=== PATIENT | female | born 1945 | race Caucasian/White ===

== ENCOUNTER 2020-08-01 21:14 | Inpatient (IN) | payer MEDICARE, OTHER ==
[~2020-08-01] VITALS: Ht 162.6 cm; Wt 50.8 kg
[2020-08-01] MEDS ORDERED: MULT-594 PO (21:36)
[2020-08-01] MEDS ORDERED: CITA20TA19 PO (21:36)
[2020-08-01] MEDS ORDERED: DOCU-141 PO (21:36)
[2020-08-01] MEDS ORDERED: LORA-259 PO (21:36)
[2020-08-01] MEDS ORDERED: OLAN5TAB3 PO (21:36)
[2020-08-01 21:59] LABS: *BILIRUBIN,URIN NEGATIVE (NEGATIVE); *CLARITY,URINE CLEAR (CLEAR); *COLOR,URINE YELLOW (YELLOW); *KETONES,URINE NEGATIVE (NEGATIVE); LEUKOCYTE ESTERASE ,URINE TRACE (NEGATIVE); NITRITE, URINE NEGATIVE (NEGATIVE); PH,URINE 5.5 (5.0-8.0); UGLUCOSE NEGATIVE (NEGATIVE)
[2020-08-01 22:04] LABS: *BLOOD, URINE TRACE LYSED (NEGATIVE)
[2020-08-01 22:06] LABS: *AMPHETAMINE, URINE NEGATIVE (NEGATIVE); *CANNABINOID, URINE NEGATIVE (NEGATIVE); *COCCAINE, URINE NEGATIVE (NEGATIVE); *OPIATE, URINE NEGATIVE (NEGATIVE); *PHENCYCLIDINE SCREEN,URINE NEGATIVE (NEGATIVE)
[2020-08-01 22:13] LABS: BASOPHILS % (AUTO) 0.7 % (0.0-2.0); EOSINOPHILS # (AUTO) 0.2 K/uL (0.0-0.7); EOSINOPHILS % (AUTO) 3.6 % (0.0-7.0); HEMATOCRIT 36.9 % (31.2-41.9); HEMOGLOBIN 12.2 g/dL (10.9-14.3); LYMPHOCYTES # (AUTO) 1.5 K/uL (20.0-40.0); LYMPHOCYTES % (AUTO) 34.7 % (20.5-51.5); MEAN CORPUSCULAR HEMOGLOBIN 26.9 uug (24.7-32.8); MEAN CORPUSCULAR HGB CONC 33 g/dL (32.3-35.6); MEAN CORPUSCULAR VOLUME 81.5 fL (75.5-95.3); MONOCYTES # (AUTO) 0.3 K/uL (2.0-10.0); MONOCYTES % (AUTO) 6.4 % (0.0-11.0); NEUTROPHILS # (AUTO) 2.4 K/uL (1.8-8.9); NEUTROPHILS % (AUTO) 54.6 % (38.5-71.5); PLATELET COUNT (AUTO) 229 K/uL (179-408); RED BLOOD CELL COUNT(AUTO) 4.53 MIL/uL (3.63-4.92); WHITE BLOOD COUNT (AUTO) 4.3 K/uL (3.8-11.8)
[2020-08-01 22:22] LABS: CARBON DIOXIDE 25 mmol/L (21-32); CHLORIDE 100 mmol/L (98-107); CREATININE 0.6 mg/dL (0.6-1.3); GLUCOSE 105 mg/dL (74-106); POTASSIUM 3.9 mmol/L (3.5-5.1); UREA NITROGEN, BLOOD 22 mg/dL (7-18)
[2020-08-01 22:24] LABS: ETHANOL < 3 MG/DL (0-0)
[2020-08-01 22:28] LABS: ALANINE AMINOTRANSFERASE 22 U/L (14-59); ALKALINE PHOSPHATASE 48 U/L (50-136); ASPARTATE AMINOTRANSFERASE 18 U/L (15-37); BILIRUBIN,DIRECT 0.2 mg/dL (0.0-0.2); BILIRUBIN,TOTAL 0.4 mg/dL (0.2-1.0)
[2020-08-01 22:33] LABS: ACETAMINOPHEN < 2.0 ug/mL (10-30)
--- NOTE | 2020-08-01 22:44 | NUR ---
OSMAR LEA RN contacted for psych eval. States she will be here in an hour. Patient is medically cleared.
--- NOTE | 2020-08-01 23:27 | NUR ---
Lissette HAZEL has arrived to conduct PSYCH EVALUATION.
--- NOTE | 2020-08-01 23:40 | NUR ---
Notified that patient will be going to [facility] for GEROPSYCH
[2020-08-02 00:10] LABS: RBC,URINE 0-3 /HPF (0-3)
[2020-08-02 00:11] LABS: BACTERIA,URINE NONE SEEN /HPF (NONE SEEN); SQUAMOUS EPITHELIAL CELL,UR FEW /HPF (NONE SEEN); WBC,URINE 0-3 /HPF (0-3)
--- NOTE | 2020-08-02 00:20 | NUR ---
Received admission report from Bill from ER.
--- NOTE | 2020-08-02 00:21 | NUR ---
REPORT GIVEN TO U
--- NOTE | 2020-08-02 00:48 | NUR ---
Pt. admitted to [facility], under care of Dr. Menjivar. Patient is ambulatory, transported via wheelchair to [facility] with all her paperwork. Belongs List completed.
--- NOTE | 2020-08-02 00:50 | NUR ---
Patient arrived from ER via wheelchair accompanied by ILIR Smith. Awake and oriented x 3, able to make needs known. Calm and cooperative. VS and weight taken and recorded. Routine admission care done. Plan of care initiated.
--- NOTE | 2020-08-02 00:55 | NUR ---
Nany daly in ED - 08/02/20 at 0058 by BENITA Patient cooperative with medication administration. Rocephin, norco, and zofran given.
[2020-08-02] MEDS ORDERED: MAGNESIUM HYDROXIDE 30 ML LIQUID UDC PO PRN (01:30)
[2020-08-02] MEDS ORDERED: BLOOD SUGAR DIAGNOSTIC 1 EACH STRIP VI ONE (01:30)
[2020-08-02] MEDS ORDERED: ACETAMINOPHEN 325 MG TABLET PO PRN (01:30)
--- NOTE | 2020-08-02 06:37 | NUR ---
Patient slept 3.25 hours. No agitation, restlessness, suicidal ideation presented. Very cooperative and compliant to plan of care.
[2020-08-02 07:52] VITALS: BP 125/62
[2020-08-02] MEDS: DOCUSATE SODIUM 100 MG CAPSULE PO SCH ×2 (08:46→16:08)
[2020-08-02] MEDS: MULTIVITAMINS,THERAPEUTIC TABLET PO SCH (08:47)
--- NOTE | 2020-08-02 09:19 | NUR ---
PT RECEIVED SITTING IN DAY ROOM. PT ADMITS TO FEELING VERY DEPRESSED AND HOPELESS, AND WOULD LIKE TO SPEAK TO A PSYCHIATRIST RIGHT AWAY. COMPLIANT WITH MEDICATIONS AND CARE. ABLE TO MAKE ALL NEEDS KNOWN. THERAPEUTIC COMMUNICATION PROVIDED.
[2020-08-02] MEDS: CEphaleXIN 500 MG CAPSULE PO SCH ×2 (12:05→23:00)
[2020-08-02 16:15] VITALS: BP 99/49
[2020-08-02 20:43] VITALS: BP 115/58
[2020-08-02] MEDS: OLANZAPINE 2.5 MG TABLET PO SCH (21:28)
--- NOTE | 2020-08-03 06:19 | NUR ---
Received Pt in the day room watching TV, quiet, no interaction with peers observed. A+Ox3-4. Presents with low mood, flat affect, and circumstantial thought process. Pt reports being depressed over living in a half-way facility and is anxious regarding her discharge plans. Admits she felt suicidal prior to admission but now feels remorseful. Denies any current suicidal thoughts, plans, or ideations, and verbally contracts for safety. Pt encouraged to verbalize her feelings, and she stated she feels hopeless, helpless, and depressed but is improving since admitted. Pt encouraged to attend and participate in group therapy in order to learn and utilize positive coping skills. Pt offered prn medication, but she declined stating her scheduled medications "are good enough for now." Denies pain, VS stable, in no acute physical distress. Shower given. Slept 6.5 hours.
[2020-08-03 07:30] VITALS: BP 106/53
[2020-08-03] MEDS: OLANZAPINE 2.5 MG TABLET PO SCH ×2 (08:10→20:19)
[2020-08-03] MEDS: DOCUSATE SODIUM 100 MG CAPSULE PO SCH ×2 (08:10→16:44)
[2020-08-03] MEDS: MULTIVITAMINS,THERAPEUTIC TABLET PO SCH (08:10)
[2020-08-03] MEDS: VENLAFAXINE XR 37.5 MG CAP.SR.24H PO SCH (08:10)
[2020-08-03] MEDS: CEphaleXIN 500 MG CAPSULE PO SCH ×2 (12:19→23:28)
[2020-08-03 15:45] VITALS: BP 90/50
[2020-08-03 20:00] VITALS: BP 109/48
--- NOTE | 2020-08-04 06:40 | NUR ---
Slept 7.45 hours. No significant event reported. No suicidal ideation noted, calm and compliant to plan of care.
[2020-08-04 07:58] VITALS: BP 120/57
[2020-08-04] MEDS: DOCUSATE SODIUM 100 MG CAPSULE PO SCH ×2 (09:43→16:39)
[2020-08-04] MEDS: OLANZAPINE 2.5 MG TABLET PO SCH (09:43)
[2020-08-04] MEDS: MULTIVITAMINS,THERAPEUTIC TABLET PO SCH (09:43)
[2020-08-04] MEDS: VENLAFAXINE XR 37.5 MG CAP.SR.24H PO SCH (09:43)
--- NOTE | 2020-08-04 10:26 | NUR ---
HENRIQUE Initial Discharge Plan: Patient resides at [facility] [address] [place] [address] ([phone]). Patient will return to SNF upon discharge. Patient has no family or supportive contacts. SW will continue to work with patient, family, and MD to ensure a safe and proper discharge plan.
--- NOTE | 2020-08-04 10:28 | NUR ---
Firearms Report: Wire Mesh Gate Assembler completed and submitted a [employer] firearms report for 5150 danger to self and grave disability certification. A copy of report has been placed in patient chart.
[2020-08-04] MEDS: CEphaleXIN 500 MG CAPSULE PO SCH (12:20)
[2020-08-04 15:18] VITALS: BP 103/62
[2020-08-04 20:00] VITALS: BP 111/56
[2020-08-04] MEDS: OLANZAPINE 5 MG TABLET PO SCH (20:38)
--- NOTE | 2020-08-04 21:00 | NUR ---
RECEIVED PATIENT IN HER ROOM IN BED. SHE IS NOTED AWAKE A/O X 3. SHE APPEARS DEPRESSED, AND WITHDRAWN; HOWEVER, PATIENT DENIED SI/HI/VH/AH. SHE IS ABLE TO VERBALLY CFS. PT IS ENCOURAGE TO VERBALIZED FEELINGS. SHE WAS ABLE TO TO TAKE A SHOWER. SHE IS REASSURED FOR HIS SAFETY. V/S STABLE. CONTINUE COMPLIANT WITH MEDICATION REGIMENT. SAFETY AND FALL PRECAUTION IN PLACE. WILL CONTINUE TO MONITOR.
[2020-08-05] MEDS: CEphaleXIN 500 MG CAPSULE PO SCH ×2 (00:40→12:36)
--- NOTE | 2020-08-05 07:00 | NUR ---
PATIENT SLEPT FOR APPROX 4.30 HRS THROUGH THE NIGHT. SHE REFUSED BLOOD DRAWN. MULTIPLE REDIRECTIONS WERE GIVEN WITH THE RISK AND BENEFITS OD COMPLIANT WITH LABS, YET INEFFECTIVE. SHE CONTINUE REFUSING LABS. WILL CONTINUE TO MONITOR.
[2020-08-05 07:30] VITALS: BP 105/51
[2020-08-05] MEDS: DOCUSATE SODIUM 100 MG CAPSULE PO SCH ×2 (08:33→16:11)
[2020-08-05] MEDS: MULTIVITAMINS,THERAPEUTIC TABLET PO SCH (08:33)
[2020-08-05] MEDS ORDERED: OLANZAPINE 2.5 MG TABLET PO SCH (09:00)
--- NOTE | 2020-08-05 09:30 | NUR ---
IN ROOM ATE BREAKFAST IN BED REFUSED TO GO TO THE D/ROOM LOOKS SAD AND DEPRESSED COMPLIANT WITH MEDICATIONS AND CARE.DENIES FEELINGS OF SI MADE COMFORTABLE WILL CONTINUE TO PROVIDE SAFE AND THERAPEUTIC ENVIRONMENT AT ALL TIMES.
--- NOTE | 2020-08-05 12:15 | NUR ---
PATIENT WAS APPARENTLY UPSET WHEN DR ALBERT ATTEMPTED TO TALK TO HER VIA ZOOM VISIT SHE DID NOT WANT TO TALK AT THIS TIME.
[2020-08-05] MEDS: OLANZAPINE 2.5 MG TABLET PO SCH (12:41)
--- NOTE | 2020-08-05 14:30 | NUR ---
KIRBY STEIN HERE TO SEE PATIENT WITH NO NEW ORDERS SHE REMAINS ON ATB FOR UTI WITH NO ADVERSE OR ALLERGIC REACTIONS AT THIS TIME.
--- NOTE | 2020-08-05 17:00 | NUR ---
SEEN STANDING IN THE HALLWAY AGREED TO GO TO THE D/ROOM FOR A BRIEF TIME SHE IS COMPLIANT WITH MEDS AT THIS TIME WILL CONTINUE TO OBSERVE
[2020-08-05 20:00] VITALS: BP 112/56
[2020-08-05] MEDS: OLANZAPINE 5 MG TABLET PO SCH (20:09)
[2020-08-06] MEDS: CEphaleXIN 500 MG CAPSULE PO SCH ×2 (00:06→12:00)
[2020-08-06 07:30] VITALS: BP 118/51
[2020-08-06] MEDS: MULTIVITAMINS,THERAPEUTIC TABLET PO SCH (08:46)
[2020-08-06] MEDS: DOCUSATE SODIUM 100 MG CAPSULE PO SCH ×2 (08:46→17:00)
[2020-08-06] MEDS: OLANZAPINE 2.5 MG TABLET PO SCH ×2 (08:46→12:18)
[2020-08-06] MEDS: DIVALPROEX 250 MG TABLET.DR PO SCH ×2 (09:15→12:18)
[2020-08-06 09:36] LABS: BASOPHILS % (AUTO) 0.4 % (0.0-2.0); EOSINOPHILS # (AUTO) 0.2 K/uL (0.0-0.7); EOSINOPHILS % (AUTO) 3.7 % (0.0-7.0); HEMATOCRIT 37.2 % (31.2-41.9); HEMOGLOBIN 12.2 g/dL (10.9-14.3); LYMPHOCYTES # (AUTO) 2.1 K/uL (20.0-40.0); LYMPHOCYTES % (AUTO) 43.7 % (20.5-51.5); MEAN CORPUSCULAR HEMOGLOBIN 27.3 uug (24.7-32.8); MEAN CORPUSCULAR HGB CONC 33 g/dL (32.3-35.6); MEAN CORPUSCULAR VOLUME 83.1 fL (75.5-95.3); MONOCYTES # (AUTO) 0.3 K/uL (2.0-10.0); MONOCYTES % (AUTO) 5.4 % (0.0-11.0); NEUTROPHILS # (AUTO) 2.2 K/uL (1.8-8.9); NEUTROPHILS % (AUTO) 46.8 % (38.5-71.5); PLATELET COUNT (AUTO) 209 K/uL (179-408); RED BLOOD CELL COUNT(AUTO) 4.48 MIL/uL (3.63-4.92); WHITE BLOOD COUNT (AUTO) 4.8 K/uL (3.8-11.8)
[2020-08-06 10:15] LABS: BILIRUBIN,TOTAL 0.4 mg/dL (0.2-1.0); CREATININE 0.7 mg/dL (0.6-1.3); POTASSIUM 4.4 mmol/L (3.5-5.1); TOTAL PROTEIN, SERUM 6.8 g/dL (6.4-8.2)
--- NOTE | 2020-08-06 10:52 | NUR ---
PC Hearing: PC hearing was held today and it was upheld for danger to self and gravely disabled.
[2020-08-06] MEDS ORDERED: DIVALPROEX 250 MG TABLET.DR PO SCH (13:00)
--- NOTE | 2020-08-06 14:00 | NUR ---
Pt was given her PM medications. pt appeared taking it, but upon checking her mouth, pt was noted to not swallowed the medication and still having it in her mouth. When asked to swallow the medications, pt became upset and spit it out on the floor, yelling that nothing is wrong with her and she does not need medications.
[2020-08-06 16:04] VITALS: BP 114/59
[2020-08-06] MEDS: DIVALPROEX SPRINKLE 125 MG CAP.SPRINK PO SCH (17:00)
--- NOTE | 2020-08-06 18:00 | NUR ---
Pt's medication was offered, patient refusing, saying that she does not need to take it. Pt's medications were changed to Depakote sprinkles and Zyprexa Zydes to prevent cheecking. Teaching was provided. Patient continues to refuse.
[2020-08-06 19:54] VITALS: BP 101/60
[2020-08-06] MEDS ORDERED: OLANZAPINE ZYDIS 5 MG TAB.RAPDIS PO SCH (21:00)
--- NOTE | 2020-08-06 22:38 | NUR ---
Patient refused Zyprexa 5mg PO QHS. she was provided with education about the important of taking prescribed medication to improved sxs, yet refused. Dr Menjivar was notified. will continue to monitor.
--- NOTE | 2020-08-07 00:57 | NUR ---
Patient refused KEFLEX 500MG PO QHS. she was provided with education about the important of taking prescribed medication to improved sxs, yet refused. will continue to monitor.
--- NOTE | 2020-08-07 07:14 | NUR ---
patient slept for approx. 6.00hrs through the night. she continue isolative and withdrawn, will continue to monitor
[2020-08-07 07:30] VITALS: BP 104/46
[2020-08-07] MEDS ORDERED: OLANZAPINE ZYDIS 5 MG TAB.RAPDIS PO SCH (08:00)
[2020-08-07] MEDS: DOCUSATE SODIUM 100 MG CAPSULE PO SCH ×2 (09:00→17:00)
[2020-08-07] MEDS: DIVALPROEX SPRINKLE 125 MG CAP.SPRINK PO SCH (09:00)
[2020-08-07] MEDS: MULTIVITAMINS,THERAPEUTIC TABLET PO SCH (09:00)
[2020-08-07] MEDS: HALOPERIDOL 5 MG TABLET PO SCH ×2 (10:15→17:00)
[2020-08-07] MEDS: CEphaleXIN 500 MG CAPSULE PO SCH ×3 (12:00→23:59)
--- NOTE | 2020-08-07 20:37 | NUR ---
RECEIVED PATIENT IN HER ROOM IN BED. A/O X 2. SHE IS EASILY IRRITABLE UPON APPROACHED. PATIENT IS LABILE.REFUSED TO ENGAGE, REUSED VITAL SIGNS, AND MEDICATION. PATIENT REMAINS. ISOLATED AND WITHDRAWN. UNCOOPERATIVE WITH PLAN OF CARE. PATIENT IS REASSURED FOR HER SAFETY. SAFE ENVIRONMENT PROVIDED, FREQUENT ROUNDING. BED IN LOWEST POSITION AND BED LOCKED.
--- NOTE | 2020-08-08 08:05 | NUR ---
pt received lying in bed resting comfortably. chief writer went to go introduce self and inquired why pt has been refusing medications. Pt just answered "no" and turned head away and ignored all further questions and communication. Continues to refuse all PO medications and v/s.
[2020-08-08] MEDS ORDERED: LORAZEPAM 2 MG/1 ML VIAL IM ONE (08:30)
[2020-08-08] MEDS ORDERED: BENZTROPINE MESYLATE 2 MG/2 ML AMPUL IM ONE (08:30)
[2020-08-08] MEDS ORDERED: HALOPERIDOL LACTATE 5 MG/1 ML VIAL IM ONE (08:30)
--- NOTE | 2020-08-08 08:40 | NUR ---
PT NOTED HIGHLY AGITATED, BELLIGERENT, SCREAMING/YELLING. APPROACHED NURSES STATION AND THREW BREAKFAST TRAY FULL OF FOOD AT NURSES STATION COMPUTER, THEREBY MAKING THE KEYBOARD NON FUNCTIONAL. REQUIRES MULTIPLE REDIRECTION BACK TO ROOM. CALLED DR. ALBERT, RECEIVED ORDER FOR HALDOL 5MG IM, ATIVAN 1MG IM, COGENTIN 1MG IM X1 NOW. NOTED AND CARRIED OUT. ALLOWED IM ADMINISTRATION WITHOUT RESISTANCE. CONTINUES TO REFUSE PO MEDICATIONS.
[2020-08-08] MEDS: DOCUSATE SODIUM 100 MG CAPSULE PO SCH ×2 (09:00→16:37)
[2020-08-08] MEDS: HALOPERIDOL 5 MG TABLET PO SCH ×2 (09:00→16:37)
[2020-08-08] MEDS: MULTIVITAMINS,THERAPEUTIC TABLET PO SCH (09:00)
--- NOTE | 2020-08-08 09:24 | NUR ---
pt lying in bed at this time. Dr. Menjivar saw pt via Telehealth, and pt immediately got up from bed, stating "you're stupid...you're homeless...you're nothing you venus avila." Redirection provided.
--- NOTE | 2020-08-08 10:55 | NUR ---
SENT RIESE PETITION TO SUPERIOR COURT AT THIS TIME. SPOKE TO BREANNE FROM THE COURT CONFIRMING THEY HAVE RECEIVED IT. STATED BECAUSE TUESDAY IS A HOLIDAY, THEY WILL NOT BE ABLE TO PROCESS IT UNTIL TUESDAY FOR THE HEARING TO BE MADE ON TUESDAY. STATES TO FAX RIESE PETITION ON TUESDAY, BECAUSE IT SHOULD BE FILED WITHIN 2 BUSINESS DAYS, AND PATIENTS RIGHTS MAY ASK TO REFILE PETITION ANYWAY. SPOKE TO DR ALBERT AND AGREED TO FILE RIESE ON TUESDAY. PT CONTINUES TO REFUSE ALL PO MEDICATIONS.
[2020-08-08] MEDS: CEphaleXIN 500 MG CAPSULE PO SCH (12:00)
[2020-08-09] MEDS: CEphaleXIN 500 MG CAPSULE PO SCH
--- NOTE | 2020-08-09 07:30 | NUR ---
Received patient Alert, disoriented x4, patient having command auditory hallucination, paranoid and delusional about her meal, patient threw her breakfast tray in the nursing station, patient non compliant with medication even after explaining to her the benefits of medication, patient monitored q15 minutes for safety
[2020-08-09] MEDS ORDERED: LORAZEPAM 2 MG/1 ML VIAL IM ONE (08:30)
[2020-08-09] MEDS ORDERED: HALOPERIDOL LACTATE 5 MG/1 ML VIAL IM ONE (08:30)
--- NOTE | 2020-08-09 08:30 | NUR ---
Emergency IM medication patient was unprovoke , went to nursing station with her breakfast tray and threw the food to the computer, patient went back to her room, having command hallucination and paranoid delusion, called and spoke with Dr. Dacosta ,with orders made and carried out, patient tolerated the medication, monitored [id number] , VS WNL no sign of any distress
[2020-08-09] MEDS: MULTIVITAMINS,THERAPEUTIC TABLET PO SCH (09:00)
[2020-08-09] MEDS: DOCUSATE SODIUM 100 MG CAPSULE PO SCH ×2 (09:00→17:00)
[2020-08-09] MEDS ORDERED: BENZTROPINE MESYLATE 2 MG/2 ML AMPUL IM SCH (09:00)
[2020-08-09] MEDS: HALOPERIDOL 5 MG TABLET PO SCH ×2 (09:00→17:00)
--- NOTE | 2020-08-09 16:22 | NUR ---
patient remain quiet in dining room, no sign of distress at this time, refusing her oral medication, aware
--- NOTE | 2020-08-09 19:37 | NUR ---
patient remain calm, no sign of distress , monitored q15 , non compliant with medication
[2020-08-10] MEDS: MULTIVITAMINS,THERAPEUTIC TABLET PO SCH (09:00)
[2020-08-10] MEDS: DOCUSATE SODIUM 100 MG CAPSULE PO SCH ×2 (09:00→17:00)
[2020-08-10] MEDS: HALOPERIDOL 5 MG TABLET PO SCH ×2 (09:00→17:00)
[2020-08-11] MEDS: DOCUSATE SODIUM 100 MG CAPSULE PO SCH ×2 (09:00→17:00)
[2020-08-11] MEDS: HALOPERIDOL 5 MG TABLET PO SCH ×2 (09:00→17:00)
[2020-08-11] MEDS: MULTIVITAMINS,THERAPEUTIC TABLET PO SCH (09:00)
--- NOTE | 2020-08-11 12:43 | NUR ---
Joaquín erickson faxed to court, today is holiday for court will follow up in Fadi boyd reading material given to patient.
--- NOTE | 2020-08-12 01:24 | NUR ---
Patient refusing VS and all medications at this time. Continuing to educate and encourage patient on importance of medication compliance. No acute behavior escalation noted so far this shift. Will monitor for safety and make frequent rounds.
--- NOTE | 2020-08-12 06:00 | NUR ---
Patient slept 8.30 hours. No issues during the night. Continuing to monitor for safety and behavior escalation. Refused to be weighted. No SI at this time.
[2020-08-12] MEDS: DOCUSATE SODIUM 100 MG CAPSULE PO SCH ×2 (08:17→16:23)
[2020-08-12] MEDS: HALOPERIDOL 5 MG TABLET PO SCH ×2 (08:18→16:23)
[2020-08-12] MEDS: MULTIVITAMINS,THERAPEUTIC TABLET PO SCH (08:18)
--- NOTE | 2020-08-12 10:36 | NUR ---
HENRIQUE Court Contact: HENRIQUE called the court ([phone]) and confirmed they received the Riese petition and will be scheduling the Riese sometime tomorrow. They stated they will know later this afternoon.
--- NOTE | 2020-08-13 06:16 | NUR ---
GPS: Remain uncooperative with meds and care. refused v/s last night. refused shower this morning. resting in bed comfortably/ slept 7.15 hrs through the night. continue plan of care.
[2020-08-13] MEDS: DOCUSATE SODIUM 100 MG CAPSULE PO SCH ×2 (08:32→16:11)
[2020-08-13] MEDS: MULTIVITAMINS,THERAPEUTIC TABLET PO SCH (08:32)
[2020-08-13] MEDS: HALOPERIDOL 5 MG TABLET PO SCH ×3 (08:32→20:23)
[2020-08-13] MEDS ORDERED: BENZTROPINE MESYLATE 0.5 MG TABLET PO SCH (10:45)
[2020-08-13] MEDS ORDERED: HALOPERIDOL LACTATE 5 MG/1 ML VIAL IM PRN ×2 (10:45→11:42)
[2020-08-13] MEDS ORDERED: HALOPERIDOL 5 MG TABLET PO SCH (10:45)
[2020-08-13] MEDS: BENZTROPINE MESYLATE 0.5 MG TABLET PO SCH ×3 (11:45→20:23)
[2020-08-13] MEDS: ENSURE ENLIVE (VAN) 240 ML LIQUID PO SCH (16:12)
--- NOTE | 2020-08-13 21:11 | NUR ---
PATIENT RECEIVED IN ACTIVITIES ROOM WATCHING T.V. AND INTERACTING WITH PEERS. PATIENT DENIES SI.PATIENT COMPLAINT WITH MEDICATION.NO AGGRESSIVE OR COMBATIVE BEHAVIOR NOTED. SAFE ENVIRONMENT, FREQUENT ROUNDING. BED IN LOWEST POSITION AND BED LOCKED.
[2020-08-14] MEDS: DOCUSATE SODIUM 100 MG CAPSULE PO SCH ×2 (08:53→16:41)
[2020-08-14] MEDS: MULTIVITAMINS,THERAPEUTIC TABLET PO SCH (08:53)
[2020-08-14] MEDS: HALOPERIDOL 5 MG TABLET PO SCH ×2 (08:53→20:33)
[2020-08-14] MEDS: BENZTROPINE MESYLATE 0.5 MG TABLET PO SCH ×3 (08:53→20:33)
[2020-08-14] MEDS: ENSURE ENLIVE (VAN) 240 ML LIQUID PO SCH ×2 (08:54→17:00)
[2020-08-14] MEDS: DIVALPROEX 250 MG TABLET.DR PO SCH ×2 (10:52→16:40)
--- NOTE | 2020-08-14 11:56 | NUR ---
Gps/Child Care Team Lead- Compliant with her routine am medications, flat angry affect, irritable
--- NOTE | 2020-08-14 14:49 | NUR ---
Gps/Vineyard Worker- Patient kept refusing EKG, since it was necessary, pt. was put on the derrell-chair , R.T. was able to do EKG while in her derrell-chair. Patient very rude , sarcastic, calling staff names , making racial remarks .
--- NOTE | 2020-08-14 18:00 | NUR ---
Gps/Ceo & Founder- Stayed in the TV room this pm, quiet, not interacting with her peers, gets irritable and angry when being approached by staff., does not want to be bothered
[2020-08-15] MEDS: HALOPERIDOL 5 MG TABLET PO SCH ×2 (08:33→20:08)
[2020-08-15] MEDS: DOCUSATE SODIUM 100 MG CAPSULE PO SCH ×2 (08:33→16:27)
[2020-08-15] MEDS: MULTIVITAMINS,THERAPEUTIC TABLET PO SCH (08:33)
[2020-08-15] MEDS: DIVALPROEX 250 MG TABLET.DR PO SCH (08:33)
[2020-08-15] MEDS: BENZTROPINE MESYLATE 0.5 MG TABLET PO SCH ×3 (08:34→20:09)
[2020-08-15] MEDS: ENSURE ENLIVE (VAN) 240 ML LIQUID PO SCH ×2 (08:34→16:57)
[2020-08-15] MEDS: DIVALPROEX 125 MG TABLET.DR PO SCH (16:27)
--- NOTE | 2020-08-16 06:31 | NUR ---
GPS: Remain cooperative with meds and care. Refused v/s last night. Refused shower this morning. resting in bed comfortably/ slept 8.15 hrs through the night. continue plan of care.
[2020-08-16] MEDS: ENSURE ENLIVE (VAN) 240 ML LIQUID PO SCH ×2 (08:00→16:12)
[2020-08-16] MEDS: DOCUSATE SODIUM 100 MG CAPSULE PO SCH ×2 (08:40→16:11)
[2020-08-16] MEDS: HALOPERIDOL 5 MG TABLET PO SCH ×2 (08:40→20:23)
[2020-08-16] MEDS: DIVALPROEX 125 MG TABLET.DR PO SCH ×2 (08:40→16:11)
[2020-08-16] MEDS: MULTIVITAMINS,THERAPEUTIC TABLET PO SCH (08:41)
[2020-08-16] MEDS: BENZTROPINE MESYLATE 0.5 MG TABLET PO SCH ×3 (08:41→20:23)
--- NOTE | 2020-08-16 16:12 | NUR ---
GPS: Nursing Notes: Refusing Medications: Patient is awake and responding to her name, gets easily irritable when redirected, poor anger management, resistant with nursing care, loud and pressured speech, patient cheeking her medications, when asked to open her mouth to check, patient became violent and verbal abusive, "YOU ARE A FUCKEN IDIOT..", "STUPID...DUMB FUCKER..", spitted all her pills on the floor, stated, "FUCK YOU..", redirected to her room, unable to formulate a viable plan for self care, continue with treatment plan.
[2020-08-16] MEDS ORDERED: ENSURE WITH FIBER 237 ML LIQUID (CHOCOLATE) PO SCH (17:00)
--- NOTE | 2020-08-17 05:56 | NUR ---
GPS: Remain cooperative with meds and care. Refused v/s last night. took shower last night. resting in bed comfortably/ slept 7.30 hrs through the night. continue plan of care.
[2020-08-17] MEDS: ENSURE ENLIVE (VAN) 240 ML LIQUID PO SCH ×2 (08:00→16:37)
--- NOTE | 2020-08-17 08:25 | NUR ---
GPS: Nursing Notes: Severe Agitation: Patient is awake and responding to her name, loud and pressured speech, verbal abusive toward staff, "STUPID BITCH..', "DUMB FUCK..', violent outburst without provocation, threw her hot meal toward staff sitting near the computer, hitting the monitor and all over the keyboard, shouting to staff, "I AM GOING TO DO THIS ALL DAY...STUPID BITCH..', resistant with nursing care, restless behavior, threatening staff, "I AM GOING TO FUCKEN GET YOU.. FUCKER.. YOU BUMB FUCK..", setting limits, but continue to restless with unpredictable behavior, refusing her PO medications, redirected to her room and Dr. Argueta covering for Dr. Youngblood was paged, continue to monitor patient for safety, continue with treatment plan.
[2020-08-17] MEDS ORDERED: LORAZEPAM 2 MG/1 ML VIAL IM ONE (08:30)
[2020-08-17] MEDS ORDERED: BENZTROPINE MESYLATE 2 MG/2 ML AMPUL IM ONE (08:30)
[2020-08-17] MEDS ORDERED: HALOPERIDOL LACTATE 5 MG/1 ML VIAL IM ONE (08:30)
[2020-08-17] MEDS ORDERED: OLANZAPINE 10 MG VIAL IM ONE (09:00)
[2020-08-17] MEDS: MULTIVITAMINS,THERAPEUTIC TABLET PO SCH (09:00)
[2020-08-17] MEDS: DIVALPROEX 125 MG TABLET.DR PO SCH ×2 (09:00→16:37)
[2020-08-17] MEDS: HALOPERIDOL 5 MG TABLET PO SCH ×2 (09:00→20:04)
[2020-08-17] MEDS: DOCUSATE SODIUM 100 MG CAPSULE PO SCH ×2 (09:00→16:37)
[2020-08-17] MEDS ORDERED: diphenhydrAMINE 50 MG/1 ML VIAL IM ONE (09:00)
[2020-08-17] MEDS: BENZTROPINE MESYLATE 0.5 MG TABLET PO SCH ×3 (09:00→20:04)
--- NOTE | 2020-08-17 09:08 | NUR ---
GPS: Nursing Notes: Chemical Restraint: Patient with severe agitation, violent outburst without provocation, threw her hot meal toward staff sitting near the computer, hitting the monitor and all over the monitor, shouting at staff "I AM GOING TO FUCKEN GET YOU... STUPID BITCH..", "I AM GOING TO DO THIS ALL DAY.. DUMB FUCK..", setting limits, but overly disruptive by shouting, unable to be redirected, restless behavior, verbal abusive and threatening staff, Dr. Argueta call back and ordered: Zyprexa 5mg IM, Ativan 1mg IM, and Benadryl 25mg IM STAT, medication IMs given at this time, R=18, continue to monitor for safety, continue with treatment plan.
--- NOTE | 2020-08-17 09:38 | NUR ---
GPS: Nursing Notes: Reassessment of Chemical Restraint: Patient is calmed, responding to her name, isolative in her room, laying down on her bed, R=18, medication IMs STAT were effective, continue to monitor for safety, continue with treatment plan.
[2020-08-17] MEDS ORDERED: OLANZAPINE 10 MG VIAL IM PRN (15:45)
--- NOTE | 2020-08-17 16:39 | NUR ---
GPS: Nursing Notes: Non-Compliance with Medications: Patient awake and responding to her name, refusing her medications, threw the pills on the floor and cover her head with her blanket, verbal abusive, "Stupid fuck..", explained the pros and cons of her psych. medication, but continue to refuse her medication, evasive when questioned by staff, unable to formulate a viable plan for self care, continue with treatment plan.
--- NOTE | 2020-08-18 05:56 | NUR ---
Received patient last night in bed but awake. Not willing to engage in any conversation but did take her PO medications without difficulty. Patient slept 9.00 hours last and remained calm throughout the shift. Continuing to monitor for labile behavior, medication compliance and safety.No acute issues at this time.
[2020-08-18] MEDS: ENSURE ENLIVE (VAN) 240 ML LIQUID PO SCH ×2 (08:00→17:00)
[2020-08-18] MEDS: BENZTROPINE MESYLATE 0.5 MG TABLET PO SCH ×3 (08:33→20:13)
[2020-08-18] MEDS: DOCUSATE SODIUM 100 MG CAPSULE PO SCH ×2 (08:34→17:00)
[2020-08-18] MEDS: MULTIVITAMINS,THERAPEUTIC TABLET PO SCH (08:34)
[2020-08-18] MEDS: DIVALPROEX 125 MG TABLET.DR PO SCH (08:34)
[2020-08-18] MEDS: HALOPERIDOL 5 MG TABLET PO SCH ×2 (08:34→20:13)
[2020-08-18 09:25] LABS: BASOPHILS % (AUTO) 0.3 % (0.0-2.0); EOSINOPHILS # (AUTO) 0.1 K/uL (0.0-0.7); EOSINOPHILS % (AUTO) 2.9 % (0.0-7.0); HEMATOCRIT 35.6 % (31.2-41.9); LYMPHOCYTES # (AUTO) 1.4 K/uL (20.0-40.0); LYMPHOCYTES % (AUTO) 36.9 % (20.5-51.5); MEAN CORPUSCULAR HEMOGLOBIN 27.8 uug (24.7-32.8); MEAN CORPUSCULAR HGB CONC 34 g/dL (32.3-35.6); MEAN CORPUSCULAR VOLUME 82.1 fL (75.5-95.3); MONOCYTES # (AUTO) 0.2 K/uL (2.0-10.0); MONOCYTES % (AUTO) 5.4 % (0.0-11.0); NEUTROPHILS # (AUTO) 2.1 K/uL (1.8-8.9); NEUTROPHILS % (AUTO) 54.5 % (38.5-71.5); PLATELET COUNT (AUTO) 186 K/uL (179-408); RED BLOOD CELL COUNT(AUTO) 4.34 MIL/uL (3.63-4.92); WHITE BLOOD COUNT (AUTO) 3.9 K/uL (3.8-11.8)
[2020-08-18 09:37] LABS: ALANINE AMINOTRANSFERASE 12 U/L (14-59); ALKALINE PHOSPHATASE 49 U/L (50-136); ASPARTATE AMINOTRANSFERASE 11 U/L (15-37); BILIRUBIN,TOTAL 0.3 mg/dL (0.2-1.0); CARBON DIOXIDE 29 mmol/L (21-32); CHLORIDE 103 mmol/L (98-107); CREATININE 0.8 mg/dL (0.6-1.3); GLUCOSE 119 mg/dL (74-106); POTASSIUM 3.9 mmol/L (3.5-5.1); TOTAL PROTEIN, SERUM 6.5 g/dL (6.4-8.2); UREA NITROGEN, BLOOD 18 mg/dL (7-18)
--- NOTE | 2020-08-18 09:56 | NUR ---
GPS: Nursing Notes: Non-compliance with Medication: Patient is awake and responding to her name, isolative in her room, cheeking her medication this am, when asked to open her mouth to see if she swallow the medication, patient looked at staff angrily and spitted the pills on her food tray, patient went back to bed and cover herself with her blanket, refusing to answer any questions, aphasic at this time, unable to formulate a viable plan for self care, refusing to participate in therapeutic groups, continue to monitor for safety, continue with treatment plan.
[2020-08-18 10:08] LABS: VALPROIC ACID < 3 ug/mL (50-100)
[2020-08-18] MEDS ORDERED: HALOPERIDOL DECANOATE 50 MG/1 ML AMPUL IM ONE (11:00)
[2020-08-18] MEDS: DIVALPROEX SPRINKLE 125 MG CAP.SPRINK PO SCH ×2 (13:00→17:00)
--- NOTE | 2020-08-18 13:00 | NUR ---
Joaquín petition faxed to court.
--- NOTE | 2020-08-19 06:15 | NUR ---
Received patient in bed, awake , alert and oriented. Refusing to have VS taken but did have a shower. This patient took PO medications without any difficulty. Hours of sleep were 6.30. Patient was up one time during the night just to check the time. No behavior escalation noted. Continuing to monitor for safety and for labile mood. Discharge Specialist unable to engage patient in any meaningful conversation. Patient gets irritated when asked questions.
[2020-08-19] MEDS: ENSURE ENLIVE (VAN) 240 ML LIQUID PO SCH ×2 (08:00→16:22)
[2020-08-19] MEDS: BENZTROPINE MESYLATE 0.5 MG TABLET PO SCH ×4 (08:33→21:00)
[2020-08-19] MEDS: HALOPERIDOL 5 MG TABLET PO SCH ×3 (08:33→21:00)
[2020-08-19] MEDS: MULTIVITAMINS,THERAPEUTIC TABLET PO SCH (08:34)
[2020-08-19] MEDS: DOCUSATE SODIUM 100 MG CAPSULE PO SCH ×2 (08:34→16:22)
[2020-08-19] MEDS: DIVALPROEX SPRINKLE 125 MG CAP.SPRINK PO SCH (08:34)
[2020-08-19] MEDS: DIVALPROEX 500 MG TABLET.DR PO SCH ×4 (11:45→21:00)
--- NOTE | 2020-08-20 06:49 | NUR ---
patient slept for approx. 7.00 hrs through the night. She refused all her QHS. will continue to monitor.
--- NOTE | 2020-08-20 07:30 | NUR ---
received patient , aox1, patient responding to internal stimuli, patient having auditory hallucination, paranoid delusional, patient refused all her morning medication, saying that medication making her sick, patient stayed in her room, on monitoring for safety
[2020-08-20] MEDS: ENSURE ENLIVE (VAN) 240 ML LIQUID PO SCH ×2 (08:00→17:00)
[2020-08-20] MEDS: BENZTROPINE MESYLATE 0.5 MG TABLET PO SCH ×3 (09:00→21:00)
[2020-08-20] MEDS: DOCUSATE SODIUM 100 MG CAPSULE PO SCH ×2 (09:00→17:00)
[2020-08-20] MEDS: HALOPERIDOL 5 MG TABLET PO SCH ×2 (09:00→21:00)
[2020-08-20] MEDS: DIVALPROEX 500 MG TABLET.DR PO SCH ×2 (09:00→21:00)
[2020-08-20] MEDS: MULTIVITAMINS,THERAPEUTIC TABLET PO SCH (09:00)
--- NOTE | 2020-08-20 19:17 | NUR ---
PATIENT BEEN CALM, NO SIGN OF DISTRESS, CONTINUES REFUSING MEDICATION
--- NOTE | 2020-08-20 21:01 | NUR ---
RECEIVED PATIENT IN HER ROOM IN BED AWAKE. SHE IS A/O X 2. SHE IS ISOLATIVE. WITHDRAWN. PATIENT NON COMPLAINT WITH MEDICATIONS WAS INFORMED OF THE IMPORTANCE OF MEDICATION COMPLIANT TO REDUCE HER SYMPTOMS, YET REFUSED. SHE STATED," THEY ARE MAKING ME SICK" IS REASSURED FOR HER SAFETY.SAFETY AND FALL PRECAUTION IN PLACE. SAFE ENVIRONMENT PROVIDED AND FREQUENT ROUNDING. BED IN LOWEST POSITION AND BED LOCKED. NO AGGRESSIVE OR COMBATIVE BEHAVIOR.
[2020-08-21] MEDS: ENSURE ENLIVE (VAN) 240 ML LIQUID PO SCH ×2 (08:00→16:46)
[2020-08-21] MEDS: MULTIVITAMINS,THERAPEUTIC TABLET PO SCH (09:00)
[2020-08-21] MEDS: DOCUSATE SODIUM 100 MG CAPSULE PO SCH ×2 (09:00→16:45)
[2020-08-21] MEDS: HALOPERIDOL 5 MG TABLET PO SCH ×2 (09:00→20:24)
[2020-08-21] MEDS: BENZTROPINE MESYLATE 0.5 MG TABLET PO SCH ×3 (09:00→20:24)
[2020-08-21] MEDS: DIVALPROEX 500 MG TABLET.DR PO SCH ×2 (09:00→20:24)
--- NOTE | 2020-08-21 14:15 | NUR ---
PC and Reise Hearing: SW placed the 30 Day Hold Certification and the Reise certification in the pts chart.
[2020-08-21] MEDS ORDERED: HALOPERIDOL DECANOATE 50 MG/1 ML AMPUL IM ONE (14:30)
[2020-08-21] MEDS ORDERED: OLANZAPINE 10 MG VIAL IM ONE (15:45)
--- NOTE | 2020-08-21 18:02 | NUR ---
Received patient AOx1, calm in her room, continuously refused her oral medications, patient was put on RIESE and Dr. Menjivar ordered Haldol Dec and gave at 3pm , on monitoring q15 minutes , patient no distress at this time
[2020-08-21] MEDS: OLANZAPINE 10 MG VIAL IM PRN (20:27)
--- NOTE | 2020-08-22 06:25 | NUR ---
gps: Remain calm and cooperative with care. patient slept for approx. 9.15 hrs through the night. patient refused all her QHS medications. haldol im was given as ordered. will continue to monitor.
[2020-08-22] MEDS: ENSURE ENLIVE (VAN) 240 ML LIQUID PO SCH ×2 (08:00→17:00)
[2020-08-22] MEDS: OLANZAPINE 10 MG VIAL IM PRN ×2 (08:40→21:02)
[2020-08-22] MEDS: HALOPERIDOL 5 MG TABLET PO SCH ×2 (09:00→20:46)
[2020-08-22] MEDS: BENZTROPINE MESYLATE 0.5 MG TABLET PO SCH ×3 (09:00→20:45)
[2020-08-22] MEDS: DIVALPROEX 500 MG TABLET.DR PO SCH ×2 (09:00→20:45)
[2020-08-22] MEDS: MULTIVITAMINS,THERAPEUTIC TABLET PO SCH (09:00)
[2020-08-22] MEDS: DOCUSATE SODIUM 100 MG CAPSULE PO SCH ×2 (09:00→17:00)
--- NOTE | 2020-08-22 11:07 | NUR ---
Individual Intervention: SW met with the pt at bedside and informed her that she is being discharged today. Pt stated that she accepts placement and that she is ready to go. SW informed her that she would have to get her vitals taken and the pt stated that she will only do that when the ambulance arrives because it hurts her.
--- NOTE | 2020-08-22 11:08 | NUR ---
SNF Contact: HENRIQUE faxed updated notes to [facility] with attn to Harish to the fax number: [phone].
--- NOTE | 2020-08-22 22:47 | NUR ---
Watching TV upon rounds. AAOx2-3 Refused all due meds plus vital signs. Needs attended. Patient calm and cooperative. No signs of behavioral issues noted. No agitation or restlessness noted. Will monitor patient. Zyprexa 7.5 given IM. Kept comfortable.
--- NOTE | 2020-08-23 07:02 | NUR ---
Slept well throughout the night. No acute distress noted. Kept comfortable. Will monitor patient. All needs attended and met.
[2020-08-23] MEDS: ENSURE ENLIVE (VAN) 240 ML LIQUID PO SCH ×2 (08:00→17:23)
[2020-08-23] MEDS: HALOPERIDOL 5 MG TABLET PO SCH ×2 (09:00→20:51)
[2020-08-23] MEDS: DIVALPROEX 500 MG TABLET.DR PO SCH ×2 (09:00→20:51)
[2020-08-23] MEDS: MULTIVITAMINS,THERAPEUTIC TABLET PO SCH (09:00)
[2020-08-23] MEDS: DOCUSATE SODIUM 100 MG CAPSULE PO SCH ×2 (09:00→17:00)
[2020-08-23] MEDS: BENZTROPINE MESYLATE 0.5 MG TABLET PO SCH ×3 (09:00→20:51)
[2020-08-23] MEDS: OLANZAPINE 10 MG VIAL IM PRN ×2 (09:42→20:52)
--- NOTE | 2020-08-23 18:00 | NUR ---
patient remain calm and cooperative with care, stays in bed for the whole day with moment of wakefulness, refused all medication, Patient calm and cooperative. No signs of behavioral issues noted. No agitation or restlessness noted. Will monitor patient. Zyprexa 7.5 given IM. Kept comfortable.
--- NOTE | 2020-08-23 23:07 | NUR ---
Calm and cooperative. Refused vital signs, blood pressure and refused all meds. Patient non-compliant with meds and care. Able to give IIM Zyprexa . No acute distress noted. VSS.
--- NOTE | 2020-08-24 06:39 | NUR ---
Slept @ 8hrs and 45 minutes. No distress noted. Uneventful night. Quiet and calm. No behavioral issues noted. Patient monitored q 15 minutes for safety.
[2020-08-24] MEDS: ENSURE ENLIVE (VAN) 240 ML LIQUID PO SCH ×2 (08:00→16:58)
[2020-08-24] MEDS: MULTIVITAMINS,THERAPEUTIC TABLET PO SCH (08:55)
[2020-08-24] MEDS: DIVALPROEX 500 MG TABLET.DR PO SCH ×3 (08:55→21:00)
[2020-08-24] MEDS: BENZTROPINE MESYLATE 0.5 MG TABLET PO SCH ×4 (08:55→21:00)
[2020-08-24] MEDS: DOCUSATE SODIUM 100 MG CAPSULE PO SCH ×2 (08:55→16:57)
[2020-08-24] MEDS: HALOPERIDOL 5 MG TABLET PO SCH ×3 (08:55→21:00)
[2020-08-24] MEDS: OLANZAPINE 10 MG VIAL IM PRN ×2 (08:56→21:31)
--- NOTE | 2020-08-24 16:00 | NUR ---
Gps/Consulting Practice Director- Refusing vital signs, reviewed with patient importance of checking,. gets argumentative, irritable ., refused to listen , walking away
--- NOTE | 2020-08-25 06:52 | NUR ---
GPS: Remain calm and cooperative with care. patient slept for approx. 7 hrs through the night. will continue to monitor.
--- NOTE | 2020-08-25 08:15 | NUR ---
SW Discharge Note: Patient will be discharged to usp facility, [facility], [place] [address] [place] [address] ([phone]) via Ambulance transportation at 4PM. Rest Room Attendant spoke with Harish, Cytology Teacher at [facility] ([phone]), who confirmed that patient will be accepted at their facility today. Patient has no supportive contacts to be notified. Upon discharge, patient appears to be alert and oriented x3 (place, self and situation). Patient is not able to plan for self-care at this time but is willing to accept care provided for her at the facility. Patient denies suicidal or homicidal ideation as well as auditory or visual hallucinations. Patient appears to be disheveled and ungroomed. Pt appears to be ambulatory with an unsteady gait. Patient presents with a dysphoric mood and congruent affect. Patient will follow-up with psychiatrist, Dr. Menjivar, located at [address] [facility] [place] [address]; , and intermediate teacher, Dr. Vega, located at [address] [facility] [address] [place] [address]; . The Choice of Vendor and the multidisciplinary exit care form was done, printed, signed, and given to the patient.
[2020-08-25] MEDS: MULTIVITAMINS,THERAPEUTIC TABLET PO SCH (09:00)
[2020-08-25] MEDS: DOCUSATE SODIUM 100 MG CAPSULE PO SCH (09:00)
[2020-08-25] MEDS: DIVALPROEX 500 MG TABLET.DR PO SCH (09:00)
[2020-08-25] MEDS: ENSURE ENLIVE (VAN) 240 ML LIQUID PO SCH (09:51)
[2020-08-25] MEDS: HALOPERIDOL 5 MG TABLET PO SCH (09:52)
[2020-08-25] MEDS: BENZTROPINE MESYLATE 0.5 MG TABLET PO SCH (09:53)
[2020-08-25 11:16] LABS: BASOPHILS % (AUTO) 0.4 % (0.0-2.0); EOSINOPHILS # (AUTO) 0.1 K/uL (0.0-0.7); HEMATOCRIT 35.6 % (31.2-41.9); HEMOGLOBIN 11.7 g/dL (10.9-14.3); LYMPHOCYTES # (AUTO) 1.2 K/uL (20.0-40.0); LYMPHOCYTES % (AUTO) 38.4 % (20.5-51.5); MEAN CORPUSCULAR HEMOGLOBIN 27.2 uug (24.7-32.8); MEAN CORPUSCULAR HGB CONC 33 g/dL (32.3-35.6); MEAN CORPUSCULAR VOLUME 82.7 fL (75.5-95.3); MONOCYTES # (AUTO) 0.2 K/uL (2.0-10.0); MONOCYTES % (AUTO) 6.1 % (0.0-11.0); NEUTROPHILS # (AUTO) 1.6 K/uL (1.8-8.9); NEUTROPHILS % (AUTO) 52.1 % (38.5-71.5); PLATELET COUNT (AUTO) 172 K/uL (179-408); RED BLOOD CELL COUNT(AUTO) 4.31 MIL/uL (3.63-4.92); WHITE BLOOD COUNT (AUTO) 3.1 K/uL (3.8-11.8)
[2020-08-25 11:50] LABS: BILIRUBIN,TOTAL 0.2 mg/dL (0.2-1.0); CREATININE 0.6 mg/dL (0.6-1.3); MAGNESIUM 1.8 mg/dL (1.8-2.4); PHOSPHOROUS 3.3 mg/dL (2.5-4.9); POTASSIUM 3.6 mmol/L (3.5-5.1); TOTAL PROTEIN, SERUM 6.7 g/dL (6.4-8.2)
[2020-08-25 12:00] LABS: THYROID STIMULATING HORMONE 1.669 mIU/mL (0.358-3.740)
[2020-08-25] MEDS ORDERED: LOPERAMIDE HCL 2 MG CAPSULE PO ONE (13:15)
--- NOTE | 2020-08-25 13:50 | NUR ---
[facility]. VS are stable, pt is aware and willing to go. All belongings are valuables returned. No distress noted. Report was called and given to ILIR Carroll.
== END 2020-08-25 13:30 | DRG 885 ==
LOC: ER 21:23 → GPS 23:41
PROVIDERS: ADMIT Psychiatry & Neurology Psychiatry; ATTEND Nurse Practitioner Acute Care
DX: F29 Unspecified psychosis not due to a substance or known physiological condition (principal); F01.50 Vascular dementia, unspecified severity, without behavioral disturbance, psychotic disturbance, mood disturbance, and anxiety; G93.41 Metabolic encephalopathy; R45.851 Suicidal ideations; N39.0 Urinary tract infection, site not specified; E87.1 Hypo-osmolality and hyponatremia; D68.69 Other thrombophilia; Z74.09 Other reduced mobility; J44.9 Chronic obstructive pulmonary disease, unspecified; D63.8 Anemia in other chronic diseases classified elsewhere; E78.5 Hyperlipidemia, unspecified; M19.90 Unspecified osteoarthritis, unspecified site; R73.03 Prediabetes; Z20.822 Contact with and (suspected) exposure to COVID-19; R94.31 Abnormal electrocardiogram [ECG] [EKG]; F41.9 Anxiety disorder, unspecified; F60.3 Borderline personality disorder; R73.9 Hyperglycemia, unspecified; F25.9 Schizoaffective disorder, unspecified
CPT/HCPCS: 36415; 80164; 83735; 84100; 84443; 85025; 93005; A4663; G0480; J0515; J1200; J1630; J1631; J2060; J2358; J3490

== ENCOUNTER 2021-04-17 21:12 | Emergency (ER) | payer MEDICARE, OTHER ==
[~2021-04-17] VITALS: Ht 162.6 cm; Wt 55.8 kg
[~2021-04-17 21:12] MED LIST: CITA20TA19 PO; DOCU-141 PO; LORA-259 PO; MULT-594 PO; OLAN5TAB3 PO
[2021-04-17] MEDS ORDERED: ACET-2154 PO (21:29)
[2021-04-17] MEDS ORDERED: MAGN400O6 PO (21:29)
[2021-04-17] MEDS ORDERED: BENZ1TAB7 PO (21:29)
[2021-04-17] MEDS ORDERED: HALO100A2 IM (21:29)
[2021-04-17 21:53] LABS: HEMATOCRIT 39.7 % (31.2-41.9); MEAN CORPUSCULAR HEMOGLOBIN 27.8 uug (24.7-32.8); MEAN CORPUSCULAR VOLUME 83.1 fL (75.5-95.3); PLATELET COUNT (AUTO) 203 K/uL (179-408)
[2021-04-17 21:56] LABS: CARBON DIOXIDE 22 mmol/L (21-32); CHLORIDE 102 mmol/L (98-107); CREATININE 0.6 mg/dL (0.6-1.3); GLUCOSE 95 mg/dL (74-106); POTASSIUM 4.1 mmol/L (3.5-5.1); UREA NITROGEN, BLOOD 15 mg/dL (7-18)
[2021-04-17 21:59] LABS: ETHANOL < 3 MG/DL (0-0)
[2021-04-17 22:02] LABS: ALANINE AMINOTRANSFERASE 17 U/L (14-59); ALKALINE PHOSPHATASE 42 U/L (50-136); ASPARTATE AMINOTRANSFERASE 17 U/L (15-37); BILIRUBIN,DIRECT 0.1 mg/dL (0.0-0.2); BILIRUBIN,TOTAL 0.6 mg/dL (0.2-1.0); TOTAL PROTEIN, SERUM 7.2 g/dL (6.4-8.2)
[2021-04-17 22:07] LABS: ACETAMINOPHEN < 2.0 ug/mL (10-30)
[2021-04-17 22:17] LABS: *CLARITY,URINE CLEAR (CLEAR); *COLOR,URINE YELLOW (YELLOW); *KETONES,URINE 3+ (NEGATIVE); *UROBILINOGEN,URINE 0.2 E.U./dl (NORMAL); LEUKOCYTE ESTERASE ,URINE NEGATIVE (NEGATIVE); NITRITE, URINE NEGATIVE (NEGATIVE); PH,URINE 5.5 (5.0-8.0); UGLUCOSE NEGATIVE (NEGATIVE)
[2021-04-17 22:18] LABS: *BILIRUBIN,URIN 1+ (NEGATIVE); *BLOOD, URINE NEGATIVE (NEGATIVE)
[2021-04-17 22:21] LABS: BACTERIA,URINE FEW /HPF (NONE SEEN); SQUAMOUS EPITHELIAL CELL,UR FEW /HPF (NONE SEEN); URINE AMORPHOUS URATE MODERATE /HPF
[2021-04-17 22:22] LABS: THYROID STIMULATING HORMONE 2.211 mIU/mL (0.358-3.740)
[2021-04-17 22:27] LABS: *AMPHETAMINE, URINE NEGATIVE (NEGATIVE); *CANNABINOID, URINE NEGATIVE (NEGATIVE); *COCCAINE, URINE NEGATIVE (NEGATIVE); *OPIATE, URINE NEGATIVE (NEGATIVE); *PHENCYCLIDINE SCREEN,URINE NEGATIVE (NEGATIVE)
--- NOTE | 2021-04-18 00:13 | NUR ---
Received call back from Giuliana HAZEL PET for pt psych evaluation.
--- NOTE | 2021-04-18 01:09 | NUR ---
Giuliana Huff RN PET arrived to ER for psych evaluation.
--- NOTE | 2021-04-18 09:03 | NUR ---
Received report from Gisela RN,Awake,alert,able to make needs known BP 112/80, P 58,R 20,oral temp 97.2F denies pain, request bathroom gait steady,offered water, juice,breakfast declined by patient. Patient aware discharged to prior assisted care residence, [facility] for transportation [facility] [phone] ETA 10:30 am.
--- NOTE | 2021-04-18 09:13 | NUR ---
EKG noted done SB rate 59,at 04/17/2021 21:[address] Gonzales
--- NOTE | 2021-04-18 12:40 | NUR ---
Call to [facility] spoke to Lorelei "no record of patient for transfer".Patient, Teamleader ED rn relief charge notified.coding clerks supervisor ,chargeRN assisting with ride to residence,comfort measurse x 2 offered declined,sipping water BPR x 1 tolerated well normal void per patient.
--- NOTE | 2021-04-18 12:45 | NUR ---
[place] Professional public safety dispatcher Maxime gave 1400 ETA for S ambulance . Primary nurse Ralf Ivy notified.
--- NOTE | 2021-04-18 13:47 | NUR ---
Patient informed of ETA of ambulance.Stable.
[2021-04-18] MEDS ORDERED: ONDANSETRON ODT 4 MG TAB.RAPDIS SL ONE (14:00)
[2021-04-18] MEDS ORDERED: ONDANSETRON HCL 4 MG TABLET ONE (14:30)
[2021-04-18 14:34] VITALS: BP 125/73
[2021-04-18] MEDS ORDERED: ONDANSETRON ODT 4 MG TAB.RAPDIS ONE (14:36)
--- NOTE | 2021-04-18 14:37 | NUR ---
[id number] with female escort transfer patient to [facility]. Medicated for feeling of nausea as directed by ED MD. BPR x2 "normal urination per pt". H20 given 500cc oral. Patient states "better" .
== END 2021-04-18 14:30 ==
LOC: ER 21:12
DX: F25.9 Schizoaffective disorder, unspecified (principal); J44.9 Chronic obstructive pulmonary disease, unspecified; E78.5 Hyperlipidemia, unspecified; M19.90 Unspecified osteoarthritis, unspecified site; Z79.899 Other long term (current) drug therapy; Z20.822 Contact with and (suspected) exposure to COVID-19; R94.31 Abnormal electrocardiogram [ECG] [EKG]; R73.03 Prediabetes
CPT/HCPCS: 36415; 71045; 84443; 85025; 87086; 93005; A4663; G0480; Q0162

== ENCOUNTER 2021-05-07 20:17 | Inpatient (IN) | payer MEDICARE, OTHER ==
[~2021-05-07] VITALS: Ht 162.6 cm; Wt 57.2 kg
[~2021-05-07 20:17] MED LIST changes: +ACET-2154 PO; +BENZ1TAB7 PO; -CITA20TA19 PO; +HALO100A2 IM; -LORA-259 PO; +MAGN400O6 PO; -OLAN5TAB3 PO
[2021-05-07] MEDS ORDERED: IV NS 1000 ML 1,000 ML IV ONE ×2 (20:30→23:00)
[2021-05-07 21:00] LABS: HEMATOCRIT 42.9 % (31.2-41.9); MEAN CORPUSCULAR HEMOGLOBIN 27.8 uug (24.7-32.8); MEAN CORPUSCULAR VOLUME 84.3 fL (75.5-95.3); PLATELET COUNT (AUTO) 268 K/uL (179-408)
[2021-05-07 21:03] LABS: CREATININE 0.8 mg/dL (0.6-1.3); POTASSIUM 4.6 mmol/L (3.5-5.1)
[2021-05-07 21:07] LABS: BILIRUBIN,DIRECT 0.1 mg/dL (0.0-0.2); BILIRUBIN,TOTAL 0.8 mg/dL (0.2-1.0)
[2021-05-07 21:40] LABS: MAGNESIUM 2.2 mg/dL (1.8-2.4)
--- NOTE | 2021-05-07 22:04 | NUR ---
Medically cleared by Dr Buitrago. Called Sunny Mann from Pet Team to eval patient.
--- NOTE | 2021-05-07 22:48 | NUR ---
Sunny Ema from PET Team into eval patient.
[2021-05-07] MEDS ORDERED: OLAN5TAB70 PO (23:03)
[2021-05-07] MEDS ORDERED: ATOR10TA PO (23:03)
[2021-05-07] MEDS ORDERED: DOCU100C36 PO (23:03)
[2021-05-07] MEDS ORDERED: ONDA4TAB5 PO (23:03)
--- NOTE | 2021-05-07 23:51 | NUR ---
Patient refusing hep lock and iv fluid. Dr Buitrago into re eval patient.
--- NOTE | 2021-05-08 00:20 | NUR ---
IV attempted multiple times by both myself and drug inspector Luis. Attempted to convince pt on benefits and nessessity of IV NS 1L bolus by both myself and the EDMD Dr. Buitrago. Pt still refuses. One final attempt made to persuade pt on benefits of IV fluid and to try to incert IV, however pt still refuses. Dr. Buitrago canceled 1L NS IV bolus and stated that she will be fine without the IV bolus and to transport her without it.
--- NOTE | 2021-05-08 00:45 | NUR ---
Pt transfered to [facility] via gurney without incident. Pt tolerated well. Pt has good color, temp and appearance. VSS, PE wnl, lungs clear, RRR, strong and reg pulses x4ext. denies any pain, nausea or discomfort. No s/sx of distress present.
[2021-05-08 01:10] VITALS: BP 121/87
[2021-05-08] MEDS ORDERED: LORAZEPAM 0.5 MG TABLET PO PRN (02:00)
[2021-05-08] MEDS ORDERED: BLOOD SUGAR DIAGNOSTIC 1 EACH STRIP VI ONE (02:00)
[2021-05-08] MEDS ORDERED: ACETAMINOPHEN 325 MG TABLET PO PRN ×2 (02:00→19:00)
[2021-05-08] MEDS ORDERED: MAGNESIUM HYDROXIDE 30 ML LIQUID UDC PO PRN (02:00)
[2021-05-08] MEDS ORDERED: MAG HYDROX/AL HYDROX/SIMETH 30 ML LIQUID UDC PO PRN (02:00)
[2021-05-08] MEDS ORDERED: TEMAZEPAM 7.5 MG CAPSULE PO PRN (02:00)
--- NOTE | 2021-05-08 02:19 | NUR ---
Received pt at 0110 via [employer] in a safe, stable condition. Pt admitted on 5150 due to being GD. No s/s of distress, no complaints of pain, A/O x3. Per hold, pt is here because she has been refusing her meds, refusing to care for herself and having loss of appetite for days at the facility she came from. Pt likewise has reportedly been delusional and paranoid, thinking that people have been "poisoning" her. Upon admission, pt is uncooperative, refusing to sign admission documents, other aspects of care and BG check, saying she is "not diabetic" and "never had to do BG checks and take medications for diabetes". Pt also refused to have any family member/significant other notified of her admission to GPS. Oriented to the unit and her room. Assisted to a comfortable position. Advisement and Patient's Rights Handbook provided. Dr. Menjivar aware of admission. Q15 min checks done and other safety precautions in place. Will continue to monitor.
[2021-05-08 07:30] VITALS: BP 101/55
[2021-05-08] MEDS ORDERED: NICOTINE 21 MG/24HR PATCH TD SCH (09:00)
[2021-05-08] MEDS: risperiDONE-M 0.5 MG TAB.RAPDIS PO SCH ×3 (10:15→17:00)
[2021-05-08] MEDS: DIVALPROEX SPRINKLE 125 MG CAP.SPRINK PO SCH ×2 (10:15→20:38)
--- NOTE | 2021-05-08 12:26 | NUR ---
Gps/[employer] Tube Bender- Refusing routine medications, explained to patient, still refused, claimed sge wants to receive shot(IM) informed patient needed to tray to take her meds. in pill form first, denies swallowing problem , will try to reoffer at a later time. Patient also refusing to eat at this time
[2021-05-08 16:03] VITALS: BP 102/57
--- NOTE | 2021-05-08 16:14 | NUR ---
HENRIQUE Initial Discharge Note Pt will return to [facility] [address] [place] [address] ([phone]) upon discharge. HENRIQUE spoke with Tameka who confirmed they are ready to accept patient once discharge is appropriate. HENRIQUE will work with [facility], and to coordinate appropriate discharge.
--- NOTE | 2021-05-08 16:22 | NUR ---
SW Facility Contact SW spoke with Tameka with [facility] at [address] [facility], [place] [address] , to inquiry about facility being able to accept patient back upon her discharge. Tameka confirmed with SW that they can accept patient back once she is medically clear.
[2021-05-08] MEDS ORDERED: ONDANSETRON HCL 4 MG TABLET PO PRN (19:00)
[2021-05-08 20:07] VITALS: BP 113/57
[2021-05-08] MEDS: ATORVASTATIN 10 MG TABLET PO SCH ×3 (20:38→21:00)
--- NOTE | 2021-05-09 03:08 | NUR ---
Received the patient at the start of the shift. The patient refused to get out of the bed, refused food and did not allow this greeting card writer to give fresh water. The patient also refused to take her Lipitor, but took her Depakote as ordered. VS were stable but the patient has had no oral intake of food for the whole dayshift. This greeting card writer was unable to engage the patient in any meaningful conversation d/t the patient being paranoid and argumentative. The patients behavior escalated when this greeting card writer put on the bed alarm. The patient would not answer any pertinent questions at that time. Continuing to monitor for safety and compliance, as well as, encourage oral intake. No acute distress noted.
[2021-05-09 07:39] VITALS: BP 102/53
[2021-05-09 08:25] LABS: BILIRUBIN,TOTAL 0.6 mg/dL (0.2-1.0); CREATININE 0.9 mg/dL (0.6-1.3); POTASSIUM 5.2 mmol/L (3.5-5.1); TOTAL PROTEIN, SERUM 8.3 g/dL (6.4-8.2)
[2021-05-09] MEDS: risperiDONE-M 0.5 MG TAB.RAPDIS PO SCH ×3 (08:52→17:34)
[2021-05-09] MEDS: DOCUSATE SODIUM 100 MG CAPSULE PO SCH ×2 (08:52→17:00)
[2021-05-09] MEDS: DIVALPROEX SPRINKLE 125 MG CAP.SPRINK PO SCH ×2 (08:52→21:00)
[2021-05-09] MEDS: BENZTROPINE MESYLATE 1 MG TABLET PO SCH ×2 (08:52→17:34)
[2021-05-09] MEDS ORDERED: SODIUM POLYSTYRENE SULFONATE 15 G/60 ML LIQUID UDC PO ONE ×2 (12:30→13:00)
[2021-05-09 16:14] VITALS: BP 92/56
[2021-05-09 20:10] VITALS: BP 91/51
[2021-05-09] MEDS: ATORVASTATIN 10 MG TABLET PO SCH (20:59)
--- NOTE | 2021-05-10 05:00 | NUR ---
Patient received at the start of the shift in bed, the same as the night before. She did take all of her routine medications but continues to be argumentative , irritated and evasive to questions . This technical document writer noticed the patient is hypotensive but asymptomatic. Applications Support Analyst offered fluids , but the patient was very resistant despite encouragement and education . Every attempt to engage in conversation was instantly shut down. Continuing to monitor the patients VS closely, provided assistance when allowed and ensure a safe environment.
[2021-05-10 08:00] VITALS: BP 100/51
[2021-05-10] MEDS: risperiDONE-M 0.5 MG TAB.RAPDIS PO SCH ×3 (08:30→17:28)
[2021-05-10] MEDS: DOCUSATE SODIUM 100 MG CAPSULE PO SCH ×2 (08:30→17:00)
[2021-05-10] MEDS: BENZTROPINE MESYLATE 1 MG TABLET PO SCH ×2 (08:30→17:28)
[2021-05-10] MEDS: DIVALPROEX SPRINKLE 125 MG CAP.SPRINK PO SCH ×2 (08:30→20:04)
[2021-05-10] MEDS: GLUCERNA SHAKE 237 ML CAN PO SCH ×4 (12:00→17:29)
[2021-05-10 16:45] VITALS: BP 119/63
[2021-05-10] MEDS: ATORVASTATIN 10 MG TABLET PO SCH (20:04)
[2021-05-10 20:11] VITALS: BP 100/65
--- NOTE | 2021-05-11 06:45 | NUR ---
GPS: Pt.slept 7.30 last night. Calm,cooperative and without any increased agitation noted. Took bedtime meds.last night without any problems. Needs attended. Safety emphasized. Will continue to monitor.
[2021-05-11 07:46] VITALS: BP 105/61
[2021-05-11] MEDS: GLUCERNA SHAKE 237 ML CAN PO SCH ×4 (08:00→17:00)
[2021-05-11] MEDS: BENZTROPINE MESYLATE 1 MG TABLET PO SCH ×2 (08:47→17:04)
[2021-05-11] MEDS: DIVALPROEX SPRINKLE 125 MG CAP.SPRINK PO SCH ×2 (08:47→20:10)
[2021-05-11] MEDS: risperiDONE-M 0.5 MG TAB.RAPDIS PO SCH ×3 (08:47→17:04)
[2021-05-11] MEDS: DOCUSATE SODIUM 100 MG CAPSULE PO SCH ×2 (08:48→17:00)
--- NOTE | 2021-05-11 10:45 | NUR ---
GPS: Nursing Notes: Elevated Potassium: Khris Rowan NP informed of potassium level 5.2mmol/L on 05/09/21 and the patient refused her Kayexalate medication, no further orders were given, continue to monitor for safety, continue with treatment plan.
[2021-05-11 15:50] VITALS: BP 92/53
[2021-05-11] MEDS: ATORVASTATIN 10 MG TABLET PO SCH (20:10)
[2021-05-11 20:56] VITALS: BP 123/51
[2021-05-12 07:52] LABS: HEMATOCRIT 35.1 % (31.2-41.9); MEAN CORPUSCULAR HEMOGLOBIN 28.2 uug (24.7-32.8); MEAN CORPUSCULAR VOLUME 83.7 fL (75.5-95.3); PLATELET COUNT (AUTO) 204 K/uL (179-408)
[2021-05-12] MEDS: GLUCERNA SHAKE 237 ML CAN PO SCH ×3 (08:00→17:00)
[2021-05-12 08:05] LABS: CREATININE 0.6 mg/dL (0.6-1.3); MAGNESIUM 2.2 mg/dL (1.8-2.4); PHOSPHOROUS 3.5 mg/dL (2.5-4.9); POTASSIUM 4.4 mmol/L (3.5-5.1)
[2021-05-12 08:07] VITALS: BP 107/64
[2021-05-12] MEDS: DOCUSATE SODIUM 100 MG CAPSULE PO SCH ×2 (08:36→17:00)
[2021-05-12] MEDS: risperiDONE-M 0.5 MG TAB.RAPDIS PO SCH ×3 (08:36→17:01)
[2021-05-12] MEDS: BENZTROPINE MESYLATE 1 MG TABLET PO SCH ×2 (08:36→17:01)
[2021-05-12] MEDS: DIVALPROEX SPRINKLE 125 MG CAP.SPRINK PO SCH ×2 (08:36→20:11)
[2021-05-12 16:00] VITALS: BP 95/49
[2021-05-12 20:08] VITALS: BP 112/56
[2021-05-12] MEDS: ATORVASTATIN 10 MG TABLET PO SCH (20:10)
[2021-05-13 07:30] VITALS: BP 108/62
[2021-05-13] MEDS: GLUCERNA SHAKE 237 ML CAN PO SCH ×3 (08:00→17:18)
[2021-05-13] MEDS: DIVALPROEX SPRINKLE 125 MG CAP.SPRINK PO SCH ×2 (09:29→21:03)
[2021-05-13] MEDS: DOCUSATE SODIUM 100 MG CAPSULE PO SCH ×2 (09:29→17:00)
[2021-05-13] MEDS: BENZTROPINE MESYLATE 1 MG TABLET PO SCH ×2 (09:29→17:18)
[2021-05-13] MEDS: risperiDONE-M 0.5 MG TAB.RAPDIS PO SCH ×3 (09:29→17:18)
--- NOTE | 2021-05-13 10:15 | NUR ---
HENRIQUE PC Hearing: Patient had 5250 probable cause hearing today and it was upheld for grave disability.
[2021-05-13 16:00] VITALS: BP 124/40
--- NOTE | 2021-05-13 18:50 | NUR ---
GPS: PT VERBALLY RESPONSIVE AND ALERT AND ORIENTED X 2. NO AGITATION TODAY. PT IS MEDICATION COMPLIANT. PT STAYS IN THE ROOM AND ENCOURAGED TO PARTICIPATE WITH GROUP THERAPY.
[2021-05-13 20:00] VITALS: BP 112/50
[2021-05-13] MEDS: ATORVASTATIN 10 MG TABLET PO SCH (21:03)
--- NOTE | 2021-05-14 02:37 | NUR ---
Received to care, isolative in her bed. Cooperative, but pleasant, upon approach. Compliant with medications. Denies any psychotic symptoms. went to sleep, around 2330. a sof now, she appears to be asleep. no distress noted.
--- NOTE | 2021-05-14 06:00 | NUR ---
Slept 7.75 hours, total. Continues to sleep. No distress noted.
[2021-05-14 07:30] VITALS: BP 96/52
[2021-05-14] MEDS: DIVALPROEX SPRINKLE 125 MG CAP.SPRINK PO SCH ×2 (09:16→21:02)
[2021-05-14] MEDS: GLUCERNA SHAKE 237 ML CAN PO SCH ×3 (09:17→16:21)
[2021-05-14] MEDS: BENZTROPINE MESYLATE 1 MG TABLET PO SCH ×2 (09:17→16:21)
[2021-05-14] MEDS: risperiDONE-M 0.5 MG TAB.RAPDIS PO SCH ×3 (09:17→16:21)
[2021-05-14] MEDS: DOCUSATE SODIUM 100 MG CAPSULE PO SCH ×2 (09:17→16:21)
[2021-05-14 16:00] VITALS: BP 100/40
--- NOTE | 2021-05-14 17:16 | NUR ---
GPS: PT ALERT AND ORIENTED X 2. PT COOPERATIVE WITH CARE AND COMPLIANT WITH MEDS. NO PARANOIA NOTED AT THIS TIME.
[2021-05-14 20:41] VITALS: BP 100/59
[2021-05-14] MEDS: ATORVASTATIN 10 MG TABLET PO SCH (20:59)
--- NOTE | 2021-05-15 02:23 | NUR ---
Received to care, isolative in her bed. Cooperative, but pleasant, upon approach. Compliant with medications. Denies any psychotic symptoms. went to sleep, around 2230. as of now, she appears to be asleep. no distress noted. Will continue to monitor closely.
[2021-05-15 07:30] VITALS: BP 113/46
[2021-05-15] MEDS: GLUCERNA SHAKE 237 ML CAN PO SCH ×3 (08:00→18:26)
[2021-05-15] MEDS: DOCUSATE SODIUM 100 MG CAPSULE PO SCH ×2 (10:03→18:26)
[2021-05-15] MEDS: DIVALPROEX SPRINKLE 125 MG CAP.SPRINK PO SCH ×2 (10:03→20:13)
[2021-05-15] MEDS: risperiDONE-M 0.5 MG TAB.RAPDIS PO SCH ×3 (10:03→18:25)
[2021-05-15] MEDS: BENZTROPINE MESYLATE 1 MG TABLET PO SCH ×2 (10:03→18:25)
[2021-05-15 17:10] VITALS: BP 119/49
[2021-05-15 20:00] VITALS: BP 105/41
[2021-05-15] MEDS: ATORVASTATIN 10 MG TABLET PO SCH (20:13)
--- NOTE | 2021-05-15 23:00 | NUR ---
Received to care, isolative in her bed. Cooperative, but pleasant, upon approach. Compliant with medications. Denies any psychotic symptoms.As of now, she appears to be asleep. no distress noted. Will continue to monitor closely.
--- NOTE | 2021-05-16 06:44 | NUR ---
Slept 8.5 hours, total. Continues to sleep. No distress noted.
[2021-05-16 08:18] VITALS: BP 105/60
[2021-05-16] MEDS: risperiDONE-M 0.5 MG TAB.RAPDIS PO SCH ×3 (08:19→16:45)
[2021-05-16] MEDS: GLUCERNA SHAKE 237 ML CAN PO SCH ×3 (08:19→17:02)
[2021-05-16] MEDS: DIVALPROEX SPRINKLE 125 MG CAP.SPRINK PO SCH ×2 (08:19→20:35)
[2021-05-16] MEDS: BENZTROPINE MESYLATE 1 MG TABLET PO SCH ×2 (08:19→16:45)
[2021-05-16] MEDS: DOCUSATE SODIUM 100 MG CAPSULE PO SCH ×2 (08:25→16:45)
--- NOTE | 2021-05-16 10:35 | NUR ---
GPS: PT ON BED, ISOLATIVE. GETS OUT OF THE ROOM ONLY WHEN ASKING FOR SOMETHING. PT COMPLIANT WITH MEDS AND NO AGITATION NOTED. PT HAD A GOOD BREAKFAST. COOPERATIVE WITH CARE.
[2021-05-16 16:09] VITALS: BP 105/57
[2021-05-16 20:00] VITALS: BP 118/52
[2021-05-16] MEDS: ATORVASTATIN 10 MG TABLET PO SCH (20:35)
[2021-05-17 07:30] VITALS: BP 108/54
[2021-05-17] MEDS: BENZTROPINE MESYLATE 1 MG TABLET PO SCH ×2 (07:54→16:33)
[2021-05-17] MEDS: risperiDONE-M 0.5 MG TAB.RAPDIS PO SCH ×3 (07:54→16:33)
[2021-05-17] MEDS: DIVALPROEX SPRINKLE 125 MG CAP.SPRINK PO SCH ×2 (07:54→20:16)
[2021-05-17] MEDS: DOCUSATE SODIUM 100 MG CAPSULE PO SCH ×2 (07:55→16:33)
[2021-05-17] MEDS: GLUCERNA SHAKE 237 ML CAN PO SCH ×3 (07:55→16:34)
--- NOTE | 2021-05-17 09:07 | NUR ---
GPS: RECEIVED PT ON BED ALERT AND CALM. MEDS COMPLIANT AND COOPERATIVE WITH CARE.
[2021-05-17 16:00] VITALS: BP 111/55
[2021-05-17 20:00] VITALS: BP 104/48
[2021-05-17] MEDS ORDERED: ATORVASTATIN 10 MG TABLET ONE (21:16)
[2021-05-17] MEDS: ATORVASTATIN 10 MG TABLET PO SCH (21:23)
[2021-05-18] MEDS: BENZTROPINE MESYLATE 1 MG TABLET PO SCH ×2 (08:36→16:58)
[2021-05-18] MEDS: risperiDONE-M 0.5 MG TAB.RAPDIS PO SCH ×3 (08:36→16:58)
[2021-05-18] MEDS: DOCUSATE SODIUM 100 MG CAPSULE PO SCH ×2 (08:36→16:59)
[2021-05-18] MEDS: DIVALPROEX SPRINKLE 125 MG CAP.SPRINK PO SCH ×2 (08:37→20:17)
[2021-05-18 08:38] VITALS: BP 105/61
[2021-05-18] MEDS: GLUCERNA SHAKE 237 ML CAN PO SCH ×3 (09:41→16:59)
--- NOTE | 2021-05-18 14:43 | NUR ---
Covid test done as ordered, patient aware of discharge plan in am.
[2021-05-18 15:41] VITALS: BP 93/49
[2021-05-18 20:06] VITALS: BP 104/59
[2021-05-18] MEDS: ATORVASTATIN 10 MG TABLET PO SCH (20:17)
--- NOTE | 2021-05-18 20:40 | NUR ---
Received patient in her room, pleasant upon approach, semi fair insight and semi fair judgement. Med compliant. Patient will remain in a psych facility for further evaluation and treatment.
[2021-05-19 07:30] VITALS: BP 92/52
--- NOTE | 2021-05-19 08:10 | NUR ---
HENRIQUE Discharge Note: Pt will be discharged to [facility] [place] [address] ([phone]) via ambulance transportation at 1PM. HENRIQUE spoke with T[facility] who confirmed they can accept patient back and are ready to accept patient today. Patient is alert and oriented x4. Pt is unable to plan for self-care at this time, however, is willing to accept care at [facility]. Patient denies suicidal or homicidal ideation. Patient presents with appropriate mood and congruent affect. Patient will follow-up at the facility with Dr. Menjivar Psychiatrist and Dr. Polo Ware Server.
[2021-05-19] MEDS: risperiDONE-M 0.5 MG TAB.RAPDIS PO SCH ×2 (08:56→12:26)
[2021-05-19] MEDS: DIVALPROEX SPRINKLE 125 MG CAP.SPRINK PO SCH (08:56)
[2021-05-19] MEDS: BENZTROPINE MESYLATE 1 MG TABLET PO SCH (08:56)
[2021-05-19] MEDS: GLUCERNA SHAKE 237 ML CAN PO SCH ×2 (08:57→12:00)
[2021-05-19] MEDS: DOCUSATE SODIUM 100 MG CAPSULE PO SCH (08:57)
--- NOTE | 2021-05-19 13:23 | NUR ---
Pt discharged to [facility] via ambulance transportation . Patient is alert and oriented x4. Pt is unable to plan for self-care at this time,. all personal belonging returned to patient and signed . report given to Raman HAZEL at [facility] Patient denies suicidal or homicidal ideation. Patient presents with appropriate mood and congruent affect. Patient will follow-up at the facility with Dr. Menjivar Psychiatrist and Dr. Polo Control Valve Mechanic.
[2021-05-20] MEDS ORDERED: DIVA-76 PO (20:13)
[2021-05-20] MEDS ORDERED: MAG30ORA PO (20:13)
[2021-05-20] MEDS ORDERED: RISP1TAB97 PO (20:13)
[2021-05-20] MEDS ORDERED: MAGN400O6 PO (20:13)
== END 2021-05-19 13:30 | DRG 885 ==
LOC: ER 20:17 → GPS 23:00
PROVIDERS: ADMIT Psychiatry & Neurology Psychosomatic Medicine; ATTEND Hospitalist
DX: F25.9 Schizoaffective disorder, unspecified (principal); F01.50 Vascular dementia, unspecified severity, without behavioral disturbance, psychotic disturbance, mood disturbance, and anxiety; E46 Unspecified protein-calorie malnutrition; E11.9 Type 2 diabetes mellitus without complications; E78.5 Hyperlipidemia, unspecified; E87.5 Hyperkalemia; F03.90 Unspecified dementia, unspecified severity, without behavioral disturbance, psychotic disturbance, mood disturbance, and anxiety; F41.9 Anxiety disorder, unspecified; J44.9 Chronic obstructive pulmonary disease, unspecified; F43.10 Post-traumatic stress disorder, unspecified; F60.3 Borderline personality disorder; E86.0 Dehydration; F29 Unspecified psychosis not due to a substance or known physiological condition; Z91.19 Patient's noncompliance with other medical treatment and regimen; Z20.822 Contact with and (suspected) exposure to COVID-19; I25.10 Atherosclerotic heart disease of native coronary artery without angina pectoris; Z68.21 Body mass index [BMI] 21.0-21.9, adult
CPT/HCPCS: 36415; 70030-TC; 71045; 80164; 83735; 84100; 85025; 93005; A4663; J7030

== ENCOUNTER 2021-05-20 19:47 | Inpatient (IN) | payer MEDICARE, OTHER ==
[~2021-05-20] VITALS: Ht 162.6 cm; Wt 55.8 kg
[~2021-05-20 19:47] MED LIST changes: +ATOR10TA PO; -DOCU-141 PO; +DOCU100C36 PO; -HALO100A2 IM; -MAGN400O6 PO; +ONDA4TAB5 PO
[2021-05-20] MEDS ORDERED: DIVA-76 PO (20:13)
[2021-05-20] MEDS ORDERED: MAG30ORA PO (20:13)
[2021-05-20] MEDS ORDERED: RISP1TAB97 PO (20:13)
[2021-05-20] MEDS ORDERED: MAGN400O6 PO (20:13)
[2021-05-20 20:16] LABS: HEMATOCRIT 38.2 % (31.2-41.9); MEAN CORPUSCULAR HEMOGLOBIN 28.1 uug (24.7-32.8); PLATELET COUNT (AUTO) 159 K/uL (179-408)
[2021-05-20 20:23] LABS: CREATININE 0.7 mg/dL (0.6-1.3); POTASSIUM 3.9 mmol/L (3.5-5.1)
--- NOTE | 2021-05-20 20:51 | NUR ---
Medically cleared by Dr Buitrago. Called Rita from [facility] who will eval patient.
--- NOTE | 2021-05-21 00:14 | NUR ---
Report given to forge heater using SBAR method. Was given to green light to bring up pt renato.
--- NOTE | 2021-05-21 00:17 | NUR ---
Pt being rolled over by admitting. as soon as roll over complete, will be transporting to [facility] using wc.
--- NOTE | 2021-05-21 00:35 | NUR ---
Pt transported to [facility] via wc without difficulty accompanied by me.
[2021-05-21 00:42] VITALS: BP 138/63
[2021-05-21] MEDS ORDERED: MAG HYDROX/AL HYDROX/SIMETH 30 ML LIQUID UDC PO PRN ×2 (00:45→09:15)
[2021-05-21] MEDS ORDERED: MAGNESIUM HYDROXIDE 30 ML LIQUID UDC PO PRN ×2 (00:45→09:15)
[2021-05-21] MEDS ORDERED: ZOLPIDEM 5 MG TABLET PO PRN (00:45)
[2021-05-21] MEDS ORDERED: LORAZEPAM 0.5 MG TABLET PO PRN (00:45)
[2021-05-21] MEDS ORDERED: ACETAMINOPHEN 325 MG TABLET PO PRN (00:45)
[2021-05-21] MEDS ORDERED: BLOOD SUGAR DIAGNOSTIC 1 EACH STRIP VI ONE (00:45)
--- NOTE | 2021-05-21 01:30 | NUR ---
Admission note: At approx 0030 admitted 76 years old female to [facility] on a 5150 for DTS and GD. per hold patient was just admitted to [facility] on 05/19. per staff, patient refused to eat, drink and she also refused her medication. she was then sent back to [facility] where she was medically cleared and put on hold. Upon admission. patient is A/O x 3, calm and pleasant upon approached, she is compliant with the admission process. Face to face assessment was done, patient stated, "I don't like the food there. I don't like the medication that they are giving me, i want to go to [facility], it is far but i like them". patient was given the booklet for [id number] right's on mental health facilities. She is under the care of Dr King. she was advised of her hold and unit rules room and room mate. will continue to monitor.
[2021-05-21 07:30] VITALS: BP 112/61
[2021-05-21] MEDS ORDERED: ACETAMINOPHEN 325 MG TABLET-SA PATIENTS-PAIN ONLY PO PRN (09:15)
--- NOTE | 2021-05-21 09:47 | NUR ---
Geriatric Psychosocial Attestation: I, Maral Birmingham TROMBONE SLIDE ASSEMBLER, attest to the accuracy of the psychosocial assessment done on this patient by Naya DUENAS on 05/08/2021. On the admission for 05/08/2021, the patient was admitted to [facility] on a 5150 hold for grave disability, due to thinking people are poisoning her and agitated with staff at [facility]. Patient was confused and disorganized, paranoid and delusional. Patient was discharged to [facility] ([phone]) on 05/19/2021. On 05/20/2021 the patient was [facility] from [facility] on [facility]150 hold for danger to self and grave disability. Per the psychiatric hold, the patient was refusing food and medications at facility due to not wanting to live in her apartment anymore. Patient was very specific in why she is refusing care as well as what she wants. Nurse reported patient recently exhibited the same behavior was was recently hospitalized. Patient will return to [facility] ([phone]) once stable and ready for discharge. HENRIQUE will continue to work with patient and MD to ensure a safe and proper discharge plan.
--- NOTE | 2021-05-21 09:55 | NUR ---
Firearms Report: [employer] Cake Decorator completed and submitted a [employer]J firearms report for 5150 grave disability certifications. A copy of report has been placed in patient chart.
[2021-05-21] MEDS ORDERED: BENZTROPINE MESYLATE 1 MG TABLET PO PRN (13:15)
[2021-05-21 16:25] VITALS: BP 120/60
[2021-05-21] MEDS: DOCUSATE SODIUM 100 MG CAPSULE PO SCH (16:26)
[2021-05-21] MEDS: risperiDONE 1 MG TABLET PO SCH (16:26)
--- NOTE | 2021-05-21 18:26 | NUR ---
GPS: RECEIVED PT TODAY, ALERT AND VERBALLY RESPONSIVE. ABLE TO INTERACT WITH ROOMMATE. PT CONSUMED MEAL WELL AND COMPLIANT WITH MEDICATION. DENIES ANY PAIN OR DISCOMFORT. PT ENCOURAGED TO PARTICIPATE WITH GROUP THERAPY.
[2021-05-21 20:17] VITALS: BP 104/54
[2021-05-21] MEDS: DIVALPROEX SPRINKLE 125 MG CAP.SPRINK PO SCH (20:22)
[2021-05-21] MEDS: ATORVASTATIN 10 MG TABLET PO SCH (20:22)
--- NOTE | 2021-05-21 21:00 | NUR ---
Received patient in her room in bed. she is noted sleeping but easily arousable. she is calm and pleasant upon approached. she stated that she loves the food that she is been served at [facility]. she had 50% for breakfast and 75% for lunch and dinner. patient is also compliant with her medication regiment. she also denied SI/HI/VA/AH, she is able to verbally CFS. will continue to monitor
--- NOTE | 2021-05-21 21:05 | NUR ---
V/S stable. Patient was given PO fluids and snacks. safety and fall precautions are in place. she is reassured for her safety.
[2021-05-22 07:30] VITALS: BP 98/49
[2021-05-22] MEDS: DIVALPROEX SPRINKLE 125 MG CAP.SPRINK PO SCH ×2 (08:44→20:22)
[2021-05-22] MEDS: risperiDONE 1 MG TABLET PO SCH ×3 (08:44→16:36)
[2021-05-22] MEDS: DOCUSATE SODIUM 100 MG CAPSULE PO SCH ×2 (08:44→16:40)
[2021-05-22 08:51] LABS: BILIRUBIN,TOTAL 0.2 mg/dL (0.2-1.0); CREATININE 0.8 mg/dL (0.6-1.3)
[2021-05-22] MEDS: GLUCERNA SHAKE VANILLA 237 ML CAN PO SCH ×2 (13:00→16:36)
[2021-05-22 16:52] VITALS: BP 103/49
[2021-05-22 20:00] VITALS: BP 103/59
[2021-05-22] MEDS: ATORVASTATIN 10 MG TABLET PO SCH (20:21)
--- NOTE | 2021-05-23 06:19 | NUR ---
Received the patient at start of the shift. Guarded, paranoid and refusing to allow her temperature to be taken because " I might get Covid if I do." Patient is also suspious of eating the meals, or allowing this fiction and nonfiction prose writer to refresh her water. Reassurance provided, but with little effect. The patient is selective with her medications, but mostly compliant. Some loose stools were reported by the patient but this fiction and nonfiction prose writer saw a formed stool. Patient slept 8.45 hours last night. Monitoring the patient for safety and delusions. Encouraging fluid intake.
[2021-05-23 07:48] VITALS: BP 101/51
[2021-05-23] MEDS: risperiDONE 1 MG TABLET PO SCH ×3 (08:07→16:18)
[2021-05-23] MEDS: DOCUSATE SODIUM 100 MG CAPSULE PO SCH ×3 (08:08→16:18)
[2021-05-23] MEDS: GLUCERNA SHAKE VANILLA 237 ML CAN PO SCH ×3 (08:08→16:18)
[2021-05-23] MEDS: DIVALPROEX SPRINKLE 125 MG CAP.SPRINK PO SCH ×2 (08:08→20:58)
[2021-05-23 16:17] VITALS: BP 116/64
[2021-05-23 20:00] VITALS: BP 123/75
[2021-05-23] MEDS: ATORVASTATIN 10 MG TABLET PO SCH (20:58)
--- NOTE | 2021-05-24 03:04 | NUR ---
This patient continues to be very paranoid. Has poor eye contact and is selectively mute. Refusing still to allow staff to provide care, food, water or monitor temperature. The patient is delusional and believes that the staff have a conspiracy to create lies about her. When attempting to reassure or understand the patient, she shuts down and put the covers over her head in complete avoidance. This makes educating and any form of therapeutic communication impossible. This advertising copywriter will continue to monitor for safety and deescalated any further paranoid delusions if able.
[2021-05-24 07:30] VITALS: BP 102/61
[2021-05-24] MEDS: DOCUSATE SODIUM 100 MG CAPSULE PO SCH ×2 (08:01→16:57)
[2021-05-24] MEDS: DIVALPROEX SPRINKLE 125 MG CAP.SPRINK PO SCH ×2 (08:01→20:37)
[2021-05-24] MEDS: risperiDONE 1 MG TABLET PO SCH ×3 (08:01→16:56)
[2021-05-24] MEDS: GLUCERNA SHAKE VANILLA 237 ML CAN PO SCH ×3 (08:01→16:57)
--- NOTE | 2021-05-24 09:54 | NUR ---
PT RECEIVED LYING IN BED RESTING COMFORTABLY. COMPLIANT WITH MEDICATIONS AND CARE. NO AGGRESSIVE OR COMBATIVE BEHAVIOR NOTED. DENIES SI. ISOLATIVE AND WITHDRAWN. REFUSES TO ATTEND GROUP
[2021-05-24 15:18] VITALS: BP 99/49
[2021-05-24 20:00] VITALS: BP 101/65
[2021-05-24] MEDS: ATORVASTATIN 10 MG TABLET PO SCH (20:37)
[2021-05-25 07:59] VITALS: BP 95/57
[2021-05-25] MEDS: risperiDONE 1 MG TABLET PO SCH ×3 (08:22→16:15)
[2021-05-25] MEDS: DIVALPROEX SPRINKLE 125 MG CAP.SPRINK PO SCH ×2 (08:22→20:02)
[2021-05-25] MEDS: GLUCERNA SHAKE VANILLA 237 ML CAN PO SCH ×3 (08:22→17:05)
[2021-05-25] MEDS: DOCUSATE SODIUM 100 MG CAPSULE PO SCH (08:26)
--- NOTE | 2021-05-25 09:29 | NUR ---
HENRIQUE SNF Referral: Per treatment team, HENRIQUE faxed patient's referral packet to alternate SNF; [facility] ( ) for new placement attention to Robert. Addendum: 05/25/21 at 1128 by BEVERLEY SCHWARTZ Patient did not get accepted for placement.
--- NOTE | 2021-05-25 12:09 | NUR ---
HENRIQUE SNF Referral: SW faxed patient's referral packet to [facility] ([phone]) and patient is approved for placement.
[2021-05-25 15:58] VITALS: BP 118/52
--- NOTE | 2021-05-25 18:33 | NUR ---
Patient resting in bed. No signs of acute distress. Patient denies pain/ discomfort. Patient denies SI/ HI. Refused AM dose of Colace, but compliant with rest of medications and care. Ambulatory. Able to care for self. Able to make needs known. Isolative. Encouraged to attend therapeutic group. Patient refused to attend and only stayed in room. Frequent patient rounding for safety. Will endorse to incoming shift for continuity of care.
[2021-05-25] MEDS: ATORVASTATIN 10 MG TABLET PO SCH (20:02)
[2021-05-25 20:17] VITALS: BP 110/63
[2021-05-26 07:30] VITALS: BP 100/48
[2021-05-26] MEDS: risperiDONE 1 MG TABLET PO SCH ×3 (08:09→17:19)
[2021-05-26] MEDS: DIVALPROEX SPRINKLE 125 MG CAP.SPRINK PO SCH ×2 (08:09→20:19)
[2021-05-26] MEDS: GLUCERNA SHAKE VANILLA 237 ML CAN PO SCH ×3 (08:10→17:30)
--- NOTE | 2021-05-26 10:49 | NUR ---
HENRIQUE PC Hearing: Patient had 5250 probable cause hearing today and it was upheld for grave disability.
[2021-05-26 15:10] VITALS: BP 103/55
--- NOTE | 2021-05-26 18:01 | NUR ---
Assumed care of patient at 1630. Patient is anxious, withdrawn, guarded, and isolative to her assigned room, but is cooperative and redirectable. Patient is compliant with medications. Patient denies suicidal and homicidal ideation, denies hallucinations. Patient is able to ambulate independently and perform self care and ADL's independently. Patient encouraged to participate in unit groups and therapeutic milieu. Patient was educated about communicating needs to staff appropriately.
[2021-05-26 19:46] VITALS: BP 105/41
[2021-05-26] MEDS: ATORVASTATIN 10 MG TABLET PO SCH (20:19)
[2021-05-27 07:30] VITALS: BP 100/53
[2021-05-27] MEDS: GLUCERNA SHAKE VANILLA 237 ML CAN PO SCH ×3 (10:27→17:00)
[2021-05-27] MEDS: risperiDONE 1 MG TABLET PO SCH ×3 (10:27→18:10)
[2021-05-27] MEDS: DIVALPROEX SPRINKLE 125 MG CAP.SPRINK PO SCH ×2 (10:27→20:51)
[2021-05-27 16:00] VITALS: BP 108/45
[2021-05-27 19:58] VITALS: BP 100/55
[2021-05-27] MEDS: ATORVASTATIN 10 MG TABLET PO SCH (20:52)
[2021-05-28 07:30] VITALS: BP 107/48
[2021-05-28] MEDS: risperiDONE 1 MG TABLET PO SCH ×3 (08:37→17:15)
[2021-05-28] MEDS: DIVALPROEX SPRINKLE 125 MG CAP.SPRINK PO SCH ×2 (08:37→20:02)
[2021-05-28] MEDS: GLUCERNA SHAKE VANILLA 237 ML CAN PO SCH ×3 (08:37→17:00)
--- NOTE | 2021-05-28 09:59 | NUR ---
Gps/Smooth Plater- Refused to wear slipper/socks, preferred to walk around in her room barefooted. Isolative, stayed in her room during her breakfast, compliant with routine am medications.Flat, guarded, encouraged participation in her group therapy ..
[2021-05-28] MEDS: BENZTROPINE MESYLATE 0.5 MG TABLET PO SCH ×2 (13:12→17:15)
[2021-05-28 16:00] VITALS: BP 115/58
[2021-05-28] MEDS: ATORVASTATIN 10 MG TABLET PO SCH (20:02)
[2021-05-28 21:46] VITALS: BP 114/60
[2021-05-29 07:30] VITALS: BP 99/57
[2021-05-29] MEDS: DIVALPROEX SPRINKLE 125 MG CAP.SPRINK PO SCH ×2 (08:43→20:12)
[2021-05-29] MEDS: risperiDONE 1 MG TABLET PO SCH ×3 (08:43→16:21)
[2021-05-29] MEDS: GLUCERNA SHAKE VANILLA 237 ML CAN PO SCH ×3 (08:43→16:21)
[2021-05-29] MEDS: BENZTROPINE MESYLATE 0.5 MG TABLET PO SCH ×3 (08:43→16:21)
[2021-05-29 10:19] LABS: HEMATOCRIT 35.3 % (31.2-41.9); MEAN CORPUSCULAR HEMOGLOBIN 27.8 uug (24.7-32.8); PLATELET COUNT (AUTO) 161 K/uL (179-408)
[2021-05-29 10:31] LABS: ALANINE AMINOTRANSFERASE 11 U/L (14-59); ALKALINE PHOSPHATASE 36 U/L (50-136); ASPARTATE AMINOTRANSFERASE 10 U/L (15-37); BILIRUBIN,TOTAL 0.3 mg/dL (0.2-1.0); CARBON DIOXIDE 30 mmol/L (21-32); CHLORIDE 105 mmol/L (98-107); CREATININE 0.7 mg/dL (0.6-1.3); GLUCOSE 103 mg/dL (74-106); POTASSIUM 4.6 mmol/L (3.5-5.1); TOTAL PROTEIN, SERUM 6.4 g/dL (6.4-8.2); UREA NITROGEN, BLOOD 15 mg/dL (7-18); VALPROIC ACID < 3 ug/mL (50-100)
--- NOTE | 2021-05-29 15:20 | NUR ---
Gps/Expander-Staying in bed most of the morning, claimed she tired and did'nt sleep well last night . Encouraged continued participation in her group therapy remains with fine tremors when initiating simple tasks.
[2021-05-29 17:31] VITALS: BP 111/68
[2021-05-29 19:59] VITALS: BP 108/53
[2021-05-29] MEDS: ATORVASTATIN 10 MG TABLET PO SCH (20:12)
--- NOTE | 2021-05-30 06:53 | NUR ---
Received the patient in the day room at the start of the shift. Poor eye contact and minimal response to questions. Patient declined food and any PRN medications. Patient does seem less paranoid than the previous shift however. No real changes to report at this time.
[2021-05-30 07:30] VITALS: BP 111/47
[2021-05-30] MEDS: GLUCERNA SHAKE VANILLA 237 ML CAN PO SCH ×3 (08:25→16:26)
[2021-05-30] MEDS: risperiDONE 1 MG TABLET PO SCH ×3 (08:25→16:25)
[2021-05-30] MEDS: DIVALPROEX SPRINKLE 125 MG CAP.SPRINK PO SCH ×2 (08:25→20:40)
[2021-05-30] MEDS: BENZTROPINE MESYLATE 0.5 MG TABLET PO SCH ×3 (08:25→16:25)
--- NOTE | 2021-05-30 11:56 | NUR ---
Gps/E Learning Designer- Refused to attend am group therapy, preferred to stay in bed, c/o feeling tired, compliant of routine morning meds, no cheeking noted. Fine tremors to her hand when initiating simple tasks . Guarded, flat , staying in bed most of the time.
[2021-05-30 16:00] VITALS: BP 109/51
[2021-05-30 20:00] VITALS: BP 113/63
[2021-05-30] MEDS: ATORVASTATIN 10 MG TABLET PO SCH (20:40)
--- NOTE | 2021-05-30 22:00 | NUR ---
Received patient in the day room watching TV. she is noted A/O x 2. noted irritable and preoccupied with her roommate. she state to this junior underwriter, "I don't want to come back to my room. i am scare of my roommate. I don't like her, she has all the room messy, she is messy". patient was reassured for her safety, she was moved from room 141A to room 140A. she was noted please. she was able to have a shower before bed. she denied SI/HI/VH/AH. she is able to verbally CFS/ safety and fall precaution are in place. she was given PO fluids and snacks. will continue to monitor.
[2021-05-31 07:58] VITALS: BP 93/48
[2021-05-31] MEDS: BENZTROPINE MESYLATE 0.5 MG TABLET PO SCH ×3 (08:09→16:13)
[2021-05-31] MEDS: GLUCERNA SHAKE VANILLA 237 ML CAN PO SCH ×3 (08:09→16:13)
[2021-05-31] MEDS: DIVALPROEX SPRINKLE 125 MG CAP.SPRINK PO SCH ×2 (08:09→20:50)
[2021-05-31] MEDS: risperiDONE 1 MG TABLET PO SCH ×3 (08:09→16:13)
[2021-05-31 15:58] VITALS: BP 108/58
[2021-05-31] MEDS: ATORVASTATIN 10 MG TABLET PO SCH (20:50)
[2021-06-01 07:54] VITALS: BP 107/43
[2021-06-01] MEDS: DIVALPROEX SPRINKLE 125 MG CAP.SPRINK PO SCH ×2 (08:55→20:17)
[2021-06-01] MEDS: GLUCERNA SHAKE VANILLA 237 ML CAN PO SCH ×3 (08:55→18:34)
[2021-06-01] MEDS: BENZTROPINE MESYLATE 0.5 MG TABLET PO SCH ×3 (08:55→16:40)
[2021-06-01] MEDS: risperiDONE 1 MG TABLET PO SCH ×3 (08:55→16:40)
[2021-06-01 16:35] VITALS: BP 108/52
--- NOTE | 2021-06-01 17:21 | NUR ---
patient is alert and oriented. she is anxious, restless, and superficially bright. patient is able to communciate needs. patient is medication compliant. denies suicidal and homicidal ideation. patient is able to ambulate independently. able to perform self care and ADL's independently. patient is encouraged to participate in unit groups and therapeutic milieu.
[2021-06-01 20:15] VITALS: BP 118/53
[2021-06-01] MEDS: ATORVASTATIN 10 MG TABLET PO SCH (20:17)
--- NOTE | 2021-06-02 03:33 | NUR ---
Received patient in the hallway, patient is med compliant, semi fair insight and semi fair judgement. Patient will remain in a psych facility for further evaluation and treatment.
[2021-06-02 07:30] VITALS: BP 126/48
--- NOTE | 2021-06-02 08:03 | NUR ---
Discharge Note: Patient will be discharged to [facility] [address] [address] ([phone]). Patient will be provided ambulance transportation at 1:00pm. Spoke with Ana the Admin Coordinator at the facility who states they are ready to accept the patient today. Patient is aware and agreeable with discharge plans. Patient is alert and oriented x2-3, is unable to plan for self-care however is willing to accept care at the facility. Patient denies any suicidal or homicidal ideation. Patient will follow-up at the facility with Psychiatrist Dr. Menjivar and Network Operations Technician Dr. Vega. Patient presents with calm mood and euthymic affect and shared she is looking forward to going to this new facility.
[2021-06-02] MEDS: risperiDONE 1 MG TABLET PO SCH ×2 (08:22→13:08)
[2021-06-02] MEDS: DIVALPROEX SPRINKLE 125 MG CAP.SPRINK PO SCH (08:23)
[2021-06-02] MEDS: BENZTROPINE MESYLATE 0.5 MG TABLET PO SCH ×2 (08:23→13:08)
[2021-06-02] MEDS: GLUCERNA SHAKE VANILLA 237 ML CAN PO SCH ×2 (09:06→13:00)
--- NOTE | 2021-06-02 15:53 | NUR ---
DISCHARGE NOTE: Patient discharged to [facility] located at [address] [place] [address] ([phone]). Patient provided ambulance transportation and was escorted off the unit with EMT and nursing staff in a gurney. Patient denies suicidal or homicidal ideation. Patient's belongings and valuables inventoried with patient and returned to patient. Patient provided with education about discharge instructions, medication, and continued treatment for mental health needs. patient able to verbalize understanding. Patient's skin is intact. Patient escorted off the unit with no adverse event.
== END 2021-06-02 15:15 | DRG 885 ==
LOC: ER 19:50 → GPS 23:55
PROVIDERS: ADMIT Psychiatry & Neurology Psychiatry; ATTEND Internal Medicine
DX: F25.0 Schizoaffective disorder, bipolar type (principal); F01.50 Vascular dementia, unspecified severity, without behavioral disturbance, psychotic disturbance, mood disturbance, and anxiety; N17.0 Acute kidney failure with tubular necrosis; E86.0 Dehydration; F60.3 Borderline personality disorder; I25.10 Atherosclerotic heart disease of native coronary artery without angina pectoris; Z20.822 Contact with and (suspected) exposure to COVID-19; Z73.6 Limitation of activities due to disability; M62.81 Muscle weakness (generalized); F41.9 Anxiety disorder, unspecified; F32.9 Major depressive disorder, single episode, unspecified; R19.7 Diarrhea, unspecified; E78.5 Hyperlipidemia, unspecified
CPT/HCPCS: 36415; 70030-TC; 71045; 80164; 83735; 84100; 85025; 93005; 97161; A4663; J7030